=== PATIENT | male | born 1930 | race Caucasian/White ===

== ENCOUNTER 2017-08-03 06:39 | Inpatient (IN) | payer MEDICARE, OTHER ==
[2017-08-03] VITALS (11 sets, daily range): BP systolic 126–148; BP diastolic 60–85; PULSE 56–100; RESP 18–19; TEMP 97.6–98; O2SAT 96–97
[~2017-08-03] VITALS: Ht 182.9 cm; Wt 90.5 kg
[2017-08-03] MEDS ORDERED: IOHEXOL 350 MG/ML 100 ML BTL (for Cath Lab) OTHER ONE (06:40)
[2017-08-03] MEDS ORDERED: diphenhydrAMINE HCL 50 MG/ML VIAL IV PUSH SCH (07:00)
[2017-08-03] MEDS ORDERED: NS 1000P @30 MLS/HR (KVO) IV SCH (07:00)
[2017-08-03] MEDS ORDERED: MAGN400T2 PO (07:18)
[2017-08-03] MEDS ORDERED: TERA2CAP3 PO (07:18)
[2017-08-03] MEDS ORDERED: NORV2.5T PO (07:18)
[2017-08-03] MEDS ORDERED: ATOR20TA15 PO (07:18)
[2017-08-03] MEDS ORDERED: VITA100021 SL (07:18)
[2017-08-03] MEDS ORDERED: VITA500T83 PO (07:18)
[2017-08-03] MEDS ORDERED: NITR0.4S SL (07:18)
[2017-08-03] MEDS ORDERED: FINA5TAB2 PO (07:18)
[2017-08-03] MEDS ORDERED: ASPI-183 PO (07:18)
[2017-08-03] MEDS ORDERED: OMEP10CA PO (07:18)
[2017-08-03] MEDS ORDERED: MIDAZOLAM HCL 2 MG/2 ML VIAL ONE (08:27)
[2017-08-03] MEDS ORDERED: HEPARIN-NS/PF INJ 1,000 ML ONE (08:27)
[2017-08-03] MEDS ORDERED: NITROGLYCERIN 400 MCG/SPRAY 4.9 GM BOTTLE SL ONE (08:45)
--- NOTE | 2017-08-03 09:08 | CATHPROC ---
[facility] HIS Report Study Information Study Number Admission Scheduled Start Study Start [id number] Aug 03 2017 6:39AM 08/03/2017 Aug 03 2017 8:01AM [place] [facility] Cardiac Catheterization Admit Source Facility Department Other [facility] Physician and Clinical Staff Initial Lv Glez Drafter Electrical Nisa Abel BSN Recorder Alexandra Chery ,RT(R) Recorder Elisa Garcia,RT(R) ScrMiroslava Ruggiero,RT(R) (BS) Procedures Performed Procedure Location (Site) Vessel Name Angiogram LV LV Ventricle Coronary Angiograms LCA Left Coronary Coronary Angiograms RCA Right Coronary L Heart Cath Equipment Time Principal Java Developer Description Size Mfg Part Number Used/Scraped TRANSDUCER, TRUWAVE [id number] 08:32 [email or web address] MAGALLON * Used W/STOCKCOCK *[id number] *[id number] *[id number] *[id number] 08:32 [facility] INDUSTRIES PACK, CCL CUSTOM * Used *[id number] 08:32 [facility] PACER PEN, SKIN DUAL W/ RULER * Used *[id number] 08:32 [employer] MEDICAL SHEATH, FR6.5 PRELUDE 11CM FR 6.5 038ACT Used *[id number] 08:32 [employer] MEDICAL WIRE, 3MMJ .035 180CM 180CM Used *[id number] 08:32 NAMIC MANIFOLD, 4 PORT * Used *[id number] 08:48 NAMIC TUBING, HIGH PRESSURE 20" 20" Used *[id number] 08:32 [employer] OMNIPAQUE, 350 MG, 100ML 100ML [id number] Used 08:48 [employer] OMNIPAQUE, 350 MG, 50ML 50ML [id number] Used [id number] 08:32 [employer] MED[employer] BLANKET,WARM AIR CCL * Used *[id number] History: Current Medications Medication Dosage/Unit Route Frequency Last Date/Time Taken ASA Statins (any) History: Allergies Allergy Reaction Penicillins iodine codeine History: Risk Factors Family History of Hypertension Dyslipidemia Previous [place] Previous Heart Failure Premature CAD Yes No No No No Prior Valve Prior PCI Prior CABG Surgery No No No Cerebrovascular Peripheral Artery Chronic Lung On Dialysis Diabetes Disease Disease Disease No No No No No History: Stress Tests Stress or Imaging Studies Performed Yes Standard Exercise Stress Test No Stress Echo No Stress Test SPECT Stress Test SPECT Result Stress Test SPECT Ischemia Risk/Extent Yes Positive High Stress Test CMR No Cardiac CTA Coronary Calcium Score No No History: Other Current Smoker No Labs Hgb (g/dl) Hct (%) WBC (l/cumm) Platelets (thousands) 11.60-17.00 35.00-51.00 4.00-11.00 150.00-450.00 14.1 42.4 6.8 227 Glucose (mg/dl) BUN (mg/dl) Creatinine (mg/dl) BUN:Creatinine (1:x) 74.00-106.00 7.00-18.00 0.50-1.30 10.00-20.00 94 16 1.0 16 Na (meq/l) K (meq/l) 136.00-145.00 3.50-5.10 143 4.7 INR (PTT:PT) 0.90-1.10 1 CPK-MB (ng/ML) 0.50-3.60 Not Drawn Medication Medication Total Dose (Bolus/Oral) Medication Total Dosage/Unit 1% XYLOCAINE 20 mL NITROGLYCERIN S/L 1 mg VERSED 2 mg Medications (Bolus/Oral) Medication Time Given Dosage/Unit Administered By Reason VERSED 08/03/2017 8:36:15 AM 2 mg Nisa Abel 2 mg VERSED given in lab by Nisa Abel BSN in Left Antecubital via Peripheral IV. Ordered b Lv Macdonald. 1% XYLOCAINE 08/03/2017 8:37:18 AM 20 mL Lv Carmen 20 mL 1% XYLOCAINE given in lab by Lv Carmen in Right Groin via Subcutaneous. Ordered by Lv Boyd ms. NITROGLYCERIN S/L 08/03/2017 8:45:00 AM 1 mg Nisa Abel 1 mg NITROGLYCERIN S/L given in lab by Nisa Abel BSN via Sublingual. Ordered by Lv Carmen. Medication (Drip) Medication Time Given Dosage/Unit Concentration/Unit Diluent (ml) Solution IV Solutions 08/03/2017 8:24:10 AM 50 mL (IV) NaCl .9 Patient arrived on IV Solutions in Left Antecubital via Peripheral IV. Pump/Drip Flow using NaCl .9. Initial Case Assessment Cardiovascular HR Rhythm NIBP Chest Pain 84 sr 132/83 0 Edema Present Skin color Skin None Normal Warm Dry Circulatory - Right Pulses Dorsalis Pedis Femoral 1 3 Scale (0,1,2,3,4,d) Circulatory - Left Pulses Dorsalis Pedis Femoral 1 3 Scale (0,1,2,3,4,d) Neurological State Oriented to time-place- Alert Moves all extremities person Respiration - General Respiration Rate SpO2 (%) (B/min) 13 96 Final Case Assessment Cardiovascular HR Rhythm NIBP Chest Pain 84 sr 132/83 0 Edema Present Skin color Skin None Normal Warm Dry Circulatory - Right Pulses Dorsalis Pedis Femoral 1 3 Scale (0,1,2,3,4,d) Circulatory - Left Pulses Dorsalis Pedis Femoral 1 3 Scale (0,1,2,3,4,d) Neurological State Oriented to time-place- Alert Moves all extremities person Respiration - General Respiration Rate SpO2 (%) (B/min) 13 96 Chronological Log Time Study Chronological Log 8:18:25 Patient pre medicated with prednizone. 40 mg last night and this morning in case of possibl e contrast allergy 8:19:06 Patient arrived via Bed. 8:19:07 Patient Name, D.O.B, / Armband Verified By R.N. 8:23:00 MD arrived. 8:23:47 Consent signed by the physician and the patient and verified by the [facility] staff. 8:23:49 Verbal Stimulation=2 Physical Stimulation=2 Airway=2 Respiration=2 TOTAL=8. (0=absent, 1=li mited, 2=present) 8:23:59 Patient has been NPO for More than 6Hrs. 8:24:00 Skin Breakdown- none per patient 8:24:04 [place] Prominences Protected 8:24:09 A # 20 IV was noted in the Antecubital (left). Grade = 0 8:24:10 Patient arrived on IV Solutions in Left Antecubital via Peripheral IV. Pump/Drip Flow using NaCl .9. 8:24:11 History and physical on the chart or being dictated. Assessment: Initial Case, HR=84 BPM, Rhythm=sr, FVQB=252/83 mmhg, Chest Pain=0, Edema=None, Col or=Normal, Skin = Warm, Dry Right Pulses: Rik Ped=1, Femoral=3 8:24:12 Left Pulses: Rik Ped=1, Femoral=3 Neurological: State=Alert, Ox3, MURPHY Respiration: Resp=13 B/min, SpO2=96 % Vitals capture started with the following parameters, Patient=Adult, Interval=5 min, Initial Pr smbrkp=548 mmHg, 8:26:02 Deflation Rate=5 mmHg, Cuff placed on Left Arm 8:26:36 HR=61 bpm, SIAH=288/83 mmhg, SpO2=97.0 %, Resp=18 B/min, Pain=0, Bernabe=2 8:30:14 Reference ECG taken 8:30:42 Bilateral groins prepped with 2% chlorhexidine, and draped after a 3 minute waiting time. 8:31:39 HR=65 bpm, UVZQ=463/83 mmhg, SpO2=96.0 %, Resp=16 B/min, Pain=0, Bernabe=2 8:35:10 Pressure channel 1 zeroed. Time Out. Correct patient, correct procedure, correct physician, power injector not loaded with contrast with surgical 8:35:30 team present. Time Out Concurred by MD and individual staff in procedure. 8:35:49 Case Start 2 mg VERSED given in lab by Nisa Abel BSN in Left Antecubital via Peripheral IV. Orde red by Kermit, 8:36:15 Lv. 8:36:42 HR=70 bpm, RZNN=158/80 mmhg, SpO2=97.0 %, Resp=16 B/min, Pain=0, Bernabe=2 8:37:18 20 mL 1% XYLOCAINE given in lab by Lv Carmen in Right Groin via Subcutaneous. Ordered by Lv Carmen. 8:39:56 Access site was Right Femoral Artery. 8:40:23 A SHEATH, FR6.5 PRELUDE 11CM FR 6.5 was advanced into the Fem Art (right) using the Percutan eous technique. A JL 4.0 INFINITI CATHETER FR 6 was advanced over a wire. OMNIPAQUE, 350 MG, 100ML 100ML was use d for 8:40:39 injections. 8:41:43 HR=73 bpm, EKFE=543/74 mmhg, SpO2=95.0 %, Resp=20 B/min, Pain=0, Bernabe=2 Recorded Pressure: Ao, HR=75, Condition=Condition 1 8:42:37 (Aorta) Ao 113/63/85 8:45:00 1 mg NITROGLYCERIN S/L given in lab by Nisa Abel BSN via Sublingual. Ordered by Lv Zuniga. 8:45:19 The LCA was injected and visualized at various angles. OMNIPAQUE, 350 MG, 100ML 100ML used. 8:46:36 HR=81 bpm, TDYW=095/88 mmhg, SpO2=97.0 %, Resp=13 B/min, Pain=0, Bernabe=2 8:47:26 Catheter was removed A JR 4.0 INFINITI CATHETER FR 6 was advanced over a wire. OMNIPAQUE, 350 MG, 100ML 100ML was use d for 8:49:19 injections. 8:50:17 The RCA was injected and visualized at various angles. OMNIPAQUE, 350 MG, 100ML 100ML used. 8:51:17 Catheter was removed 8:51:42 HR=82 bpm, EWYL=665/85 mmhg, SpO2=95.0 %, Resp=12 B/min, Pain=0, Bernabe=2 A PIGTAIL STR INFINITI CATHETER FR 6 was advanced over a wire. OMNIPAQUE, 350 MG, 100ML 100ML wa s used for 8:52:31 injections. Recorded Pressure: LV, HR=84, Condition=Condition 1 8:52:51 (Left Ventricle) LV 141/2/6 8:53:28 The LV was injected at 12 cc/sec for a total of 30. OMNIPAQUE, 350 MG, 50ML 50ML used. Recorded Pressure: LV, Ao, HR=83, Condition=Condition 1 8:53:54 (Left Ventricle) LV 136/3/12, (Aorta) Ao 132/72/100 8:54:51 Catheter was removed 8:55:55 Case End 8:56:32 Sheath(s) left in place, will be removed in Holding Area 8:56:38 Sterile dressing applied to site 8:56:40 No case complications noted. 8:56:41 Cine recording checked. 8:56:43 HR=83 bpm, ZUUT=177/82 mmhg, SpO2=95.0 %, Resp=19 B/min, Pain=0, Bernabe=2 8:56:47 Bedside Report will be given. 8:56:52 Contrast Scanned 8:57:02 A Left Heart Cath was performed. Assessment: Final Case, HR=84 BPM, Rhythm=sr, OLLQ=468/83 mmhg, Chest Pain=0, Edema=None, [place] r=Normal, Skin = Warm, Dry Right Pulses: Rik Ped=1, Femoral=3 8:57:21 Left Pulses: Rik Ped=1, Femoral=3 Neurological: State=Alert, Ox3, MURPHY Respiration: Resp=13 B/min, SpO2=96 % 9:01:44 HR=79 bpm, FVTV=435/75 mmhg, SpO2=96.0 %, Resp=30 B/min 9:02:43 Vitals capture stopped. 9:05:27 Patient moved to stretcher End Study - Contrast Media Used In Study Contrast Total Opened (mL) Total Used (mL) Total Wasted (mL) Omnipaque 85 85 0 End Study - Maximum Contrast Load Max Contrast Load (mL) 440.9 End Study - Radiation Exposure Fluoro Time (minutes) 1.8 End Study - Patient Disposition Complications Transferred To Interventional Outcome No [facility] Holding No attempt made
[2017-08-03] MEDS ORDERED: BACITRACIN OINT 0.9 GM PKT TOP ONE (09:15)
[2017-08-03] MEDS ORDERED: SODIUM CHLOR 0.9% 250 ML INJ 250 ML IV PRN (09:15)
[2017-08-03] MEDS ORDERED: MISC INFORMATION XX ONE (09:15)
[2017-08-03] MEDS ORDERED: ATROPINE SULFATE 1 MG/ML VIAL IV PUSH PRN (09:15)
[2017-08-03] MEDS ORDERED: ONDANSETRON HCL 4 MG/2 ML VIAL IV PUSH PRN (09:15)
[2017-08-03] MEDS ORDERED: LORazepam 2 MG/ML VIAL IV PUSH PRN (09:15)
[2017-08-03] MEDS ORDERED: LIDOCAINE HCL 1% 50 ML VIAL INFIL PRN (09:15)
--- NOTE | 2017-08-03 09:49 | MA ---
cc: LV CARMEN MD DATE 08/03/2017 PROCEDURE PERFORMED The patient was prepped and draped in the usual fashion. A 6-sheath was inserted percutaneously in the right femoral artery. HEMODYNAMIC RESULTS Aortic pressure was 120/80. Left ventricular end-diastolic pressure was 5. There was no gradient across the aortic valve. CORONARY ANGIOGRAPHY The left main coronary demonstrated a 70% stenosis in its distal portion. The proximal LAD demonstrated a high-grade stenosis of 90%. Somewhat of a reconstitution was present and a second 75-80% stenosis was present in the midportion encompassing the takeoff of the first diagonal. The distal portion of the LAD appeared to have some mild diffuse disease but no high-grade stenosis was present. At the origin of the first diagonal a 75% stenosis was present with the distal portion of the diagonal bifurcating into a secondary branch with no significant stenoses. The left circumflex artery gave off a large obtuse marginal branch. No significant lesions were noted in the circumflex system. The right coronary artery demonstrated a 75-80% stenosis in its midportion. Left ventriculography demonstrated a normal left ventricular cavity size. Left ventricular ejection fraction was well-maintained with an EF estimated at 65%. No mitral regurgitation was present. CONCLUSIONS This patient demonstrates the coronary disease as described above. He would appear to be a candidate for bypass grafting to the distal LAD, first diagonal, obtuse marginal and right coronary artery. Lv Carmen MD DLW/SSB /9:24 AM /9:42 AM
[2017-08-03] MEDS ORDERED: SODIUM CHLORIDE 0.9% FLUSH 10 ML FLUSH IV FLUSH PRN ×2 (14:30)
[2017-08-03] MEDS ORDERED: NITROGLYCERIN 0.4 MG SL 25 TABS/BTL SL PRN (14:30)
[2017-08-03] MEDS ORDERED: SENNOSIDES 8.6 MG TAB PO PRN (14:30)
[2017-08-03] MEDS ORDERED: LACTULOSE SYRUP 20 GM/30 ML CUP PO PRN (14:30)
[2017-08-03] MEDS ORDERED: DEXTROSE 50% IN WATER 50 ML VIAL(D50) IV PUSH PRN (14:30)
[2017-08-03] MEDS ORDERED: ZOLPIDEM TARTRATE 5 MG TAB PO PRN (14:30)
[2017-08-03] MEDS ORDERED: VANCOMYCIN INJ 1,000 MG in SODIUM CHLORIDE 0.9% IRR BTL 1,000 ML IRRIGATION SCH (14:30)
[2017-08-03] MEDS ORDERED: VANCOMYCIN INJ 1,500 MG in SODIUM CHLORID 0.9% 500 ML INJ 500 ML IV SCH (14:30)
[2017-08-03] MEDS ORDERED: INSULIN REGULAR (IV INFUSION) 100 UNITS in SODIUM CHLORIDE 0.9% INJ 99 ML IV PRN (14:30)
[2017-08-03] MEDS ORDERED: ACETAMINOPHEN 325 MG TAB PO PRN (14:30)
[2017-08-03] MEDS ORDERED: NALOXONE HCL 0.4 MG/ML AMP IV PUSH PRN (14:30)
[2017-08-03] MEDS ORDERED: CHLORHEXIDINE GLUCONATE 4% SOLN 120 ML BTL TOPICAL SCH (14:30)
[2017-08-03] MEDS ORDERED: PAPAVERINE INJ 60 MG, NITROGLYCERIN INJ 100 MCG, DILTIAZEM INJ 100 MG in SODIUM CHLORID... IRRIGATION SCH (14:30)
[2017-08-03] MEDS ORDERED: METOPROLOL TARTRATE 25 MG TAB PO SCH (14:30)
[2017-08-03] MEDS ORDERED: MAGNESIUM HYDROXIDE SUSP 30 ML CUP PO PRN (14:30)
[2017-08-03] MEDS ORDERED: BISACODYL 10 MG SUPP RECTAL PRN (14:30)
[2017-08-03] MEDS ORDERED: PILL SPLITTER OTHER PRN (14:45)
--- NOTE | 2017-08-03 15:29 | PD.CAR.PN ---
CVT Progress Note Subjective/Hospital Course: RISK SCORES About the STS Risk Calculator Procedure: CAB Only Risk of Mortality: 2.028% Morbidity or Mortality: 14.983% Long Length of Stay: 6.325% Short Length of Stay: 34.83% Permanent Stroke: 1.209% Prolonged Ventilation: 9.463% DSW Infection: 0.435% Renal Failure: 3.655% Reoperation: 5.711% Objective: Vital Signs Date Time Temp Pulse Resp B/P (MAP) Pulse Ox O2 Delivery O2 Flow Rate FiO2 08/03/17 09:09 94 Room Air 08/03/17 07:20 97.6 100 18 143/83 (103) 97 Karrie Patel Aug 03, 2017 15:29
[2017-08-03] MEDS: FINASTERIDE 5 MG TAB PO SCH (16:34)
--- NOTE | 2017-08-03 18:36 | RADRPT ---
EXAM DATE/TIME: 08/03/2017 17:41 [facility] COMPARISON: No previous studies available for comparison. INDICATIONS : Evaluate for pneumonia, pneumothorax, or communicable disease. Pre op CABG. MEDICAL HISTORY : None. SURGICAL HISTORY : None. ENCOUNTER: Initial ACUITY: 1 day PAIN SCORE: 0/10 LOCATION: Bilateral chest FINDINGS: PA and lateral views of the chest demonstrate the lungs to be symmetrically aerated without evidence of mass, infiltrate or effusion. The cardiomediastinal contours are unremarkable. Osseous structure s are intact. CONCLUSION: 1. No active disease. Calcified granuloma left upper lobe. Ladarius Villalta MD on August 03, 2017 at 18:32 Board Certified Radiologist. This report was verified electronically.
--- NOTE | 2017-08-03 19:14 | RADRPT ---
EXAM DATE/TIME: 08/03/2017 18:04 [facility] COMPARISON: No previous studies available for comparison. INDICATIONS : Preop cardiac surgery. MEDICAL HISTORY : Chest pain. Hypertension. Bronchitis. SURGICAL HISTORY : None. ENCOUNTER: Initial ACUITY: 1 day PAIN SCORE: 0/10 LOCATION: Bilateral legs. TECHNIQUE: Venous ultrasound of the left and right leg was performed from the inguinal ligament to the proximal calf. Real-time, color Doppler and spectral tracing, compression and augmentation techniques were us ed. FINDINGS: RIGHT LEG: There is normal compressibility of the deep venous system from the inguinal region to the proximal ca lf. No echogenic clot is seen in the lumen of the common femoral, femoral, popliteal, and posterior tibial veins. There is a normal response of the venous system to proximal and distal augmentation an d respiration. LEFT LEG: There is normal compressibility of the deep venous system from the inguinal region to the proximal ca lf. No echogenic clot is seen in the lumen of the common femoral, femoral, popliteal, and posterior tibial veins. There is a normal response of the venous system to proximal and distal augmentation an d respiration. CONCLUSION: Normal examination. Ladarius Villalta MD on August 03, 2017 at 19:10 Board Certified Radiologist. This report was verified electronically.
--- NOTE | 2017-08-03 19:15 | RADRPT ---
EXAM DATE/TIME: 08/03/2017 18:30 [facility] COMPARISON: No previous studies available for comparison. INDICATIONS : Preop cardiac surgery. MEDICAL HISTORY : Chest pain. Hypertension. Bronchitis. SURGICAL HISTORY : None. ENCOUNTER: Initial ACUITY: 1 day PAIN SCORE: 0/10 LOCATION: Bilateral neck PEAK SYSTOLIC VELOCITIES (cm/sec): ICA/CCA RATIO: Right: 1.1 Left: 0.8 ICA: Right: 61 Left: 56 CCA: Right: 55 Left: 68 ECA: Right: 125 Left: 65 VERTEBRAL: Right: 45 antegrade Left: 45 antegrade Elevated flow velocities and ICA/CCA ratios have been found to correlate with increased degrees of vessel stenosis, calculated as percentage of diameter relative to a normal segment of distal ICA/CCA FINDINGS: RIGHT CAROTID: No significant stenosis is visualized. The waveforms are within normal limits. LEFT CAROTID: No significant stenosis is visualized. The waveforms are within normal limits. VERTEBRAL ARTERIES: Antegrade flow is seen in both vertebral arteries. MISCELLANEOUS: None. CONCLUSION: 1. Mild visible plaque without carotid stenosis. Ladarius Villalta MD on August 03, 2017 at 19:12 Board Certified Radiologist. This report was verified electronically.
--- NOTE | 2017-08-03 19:50 | RADRPT ---
EXAM DATE/TIME: 08/03/2017 18:12 [facility] COMPARISON: No previous studies available for comparison. INDICATIONS : Preop cardiac surgery. MEDICAL HISTORY : Chest pain. Hypertension. Bronchitis. SURGICAL HISTORY : None. ENCOUNTER: Initial ACUITY: 1 day PAIN SCORE: 0/10 LOCATION: Bilateral legs. GREATER SAPHENOUS VEIN THIGH: PROXIMAL: Right 2 mm Left 2 mm MID: Right 2 mm Left 3 mm DISTAL: Right 1 mm Left 3 mm CALF: PROXIMAL: Right 2 mm Left 2 mm MID: Right 1 mm Left 2 mm DISTAL: Right 2 mm Left 3 mm FINDINGS: The venous system of the lower extremities are patent by color Doppler imaging. Measurements of the leg veins (in mm) are listed above. CONCLUSION: 1. Venous measurements as above. Ladarius Villalta MD on August 03, 2017 at 19:48 Board Certified Radiologist. This report was verified electronically.
--- NOTE | 2017-08-03 20:48 | RADRPT ---
EXAM DATE/TIME: 08/03/2017 17:36 [facility] COMPARISON: No previous studies available for comparison. INDICATIONS : Pre operative for CABG. RADIATION DOSE: 8.29 CTDIvol (mGy) MEDICAL HISTORY : Hypertension. SURGICAL HISTORY : Cardiac Cath. ENCOUNTER: Initial ACUITY: 1 day PAIN SCALE: 1/10 LOCATION: Bilateral chest TECHNIQUE: Volumetric scanning of the chest was performed. Using automated exposure control and adjustment of t he mA and/or kV according to patient size, radiation dose was kept as low as reasonably achievable to obtain optimal diagnostic quality images. DICOM format image data is available electronically for r eview and comparison. Follow-up recommendations for detected pulmonary nodules are based at a minimum on nodule size and pa tient risk factors according to Fleischner Society Guidelines. FINDINGS: There is an 8mm nodule in the left upper lobe adjacent to the aortic arch. Followup CT recommended in 3-6 months. There is linear scarring or atelectasis at both lung bases. No pleural or pericardial ef fusion. No adenopathy. Moderate coronary calcifications. No acute findings in the upper abdomen. Splenic granulomata. No acute bony abnormalities. CONCLUSION: 1. Nodule left upper lobe measuring up to 8 mm in diameter. Short term followup CT recommended. Minim al basilar lung scarring. No effusion or adenopathy. Ladarius Villalta MD on August 03, 2017 at 20:42 Board Certified Radiologist. This report was verified electronically.
[2017-08-03] MEDS: SODIUM CHLORIDE 0.9% FLUSH 10 ML FLUSH IV FLUSH SCH (20:54)
[2017-08-03] MEDS: TERAZOSIN HCL 1 MG CAP PO SCH (20:55)
[2017-08-03] MEDS: ATORVASTATIN 20 MG TAB PO SCH (20:55)
[2017-08-03] MEDS: DOCUSATE SODIUM 50 MG/SENNA 8.6 MG TAB PO SCH (20:55)
[2017-08-03] MEDS ORDERED: SODIUM CHLORIDE 0.9% FLUSH 10 ML FLUSH IV FLUSH SCH (21:00)
[2017-08-03 22:23] LABS: BILIRUBIN, URINE NEG (NEG); BLOOD, URINE NEG (NEG); GLUCOSE,URINE 70 mg/dL (NEG); KETONE, URINE NEG (NEG); NITRITE,URINE NEG (NEG); URINE COLOR YELLOW (YELLW/STRAW); URINE LEUKOCYTE ESTERASE NEG (NEG)
[2017-08-04] VITALS (21 sets, daily range): BP systolic 128–137; BP diastolic 62–69; PULSE 48–65; RESP 19–20; TEMP 98–98.5; O2SAT 96–98
[2017-08-04 04:33] LABS: BASOPHIL % 0.2 % (0.0-2.0); EOSINOPHIL # 0.1 TH/MM3 (0-0.4); EOSINOPHIL % 0.4 % (0.0-4.0); HEMATOCRIT 37.7 % (39.0-51.0); HEMOGLOBIN 13.1 GM/DL (13.0-17.0); LYMPH % 9.3 % (9.0-44.0); LYMPHOCYTE # 1.2 TH/MM3 (1.0-4.8); MEAN CORPUSCULAR HGB CONC 34.8 % (32.0-36.0); MEAN PLATELET VOLUME 7.4 FL (7.0-11.0); MONO % 8.2 % (0.0-8.0); MONOCYTE # 1.1 TH/MM3 (0-0.9); NEUT % 81.9 % (16.0-70.0); PLATELET COUNT 191 TH/MM3 (150-450); RED BLOOD COUNT 4.39 MIL/MM3 (4.50-5.90); RED CELL DISTRIBUTION WIDTH 14.3 % (11.6-17.2); WHITE BLOOD COUNT 13.4 TH/MM3 (4.0-11.0)
[2017-08-04 04:43] LABS: INTERNATIONAL NORMALIZED RATIO 1.1 RATIO; PROTHROMBIN TIME - PATIENT 10.8 SEC (9.8-11.6)
[2017-08-04 04:56] LABS: AST (GOT) 12 U/L (15-37); BLOOD UREA NITROGEN 19 MG/DL (7-18); CALCIUM 8.1 MG/DL (8.5-10.1); CHLORIDE 108 MEQ/L (98-107); CREATININE 0.91 MG/DL (0.60-1.30); GLOMERULAR FILTRATION RATE 79 ML/MIN (>89); GLUCOSE,RANDOM 108 MG/DL (74-106); SODIUM (NA) 141 MEQ/L (136-145)
[2017-08-04 04:58] LABS: ALKALINE PHOSPHATASE 71 U/L (45-117); ALT (GPT) 19 U/L (12-78); TOTAL BILIRUBIN ADULT 0.4 MG/DL (0.2-1.0); TOTAL PROTEIN 5.6 GM/DL (6.4-8.2)
--- NOTE | 2017-08-04 08:13 | MB ---
cc: KASHMIR SHANKAR DR. DATE OF CONSULTATION: 08/03/2017 DATE OF : 34 PHYS[address] Lv Carmen MD. César Laguerre MD. HISTORY OF PRESENT ILLNESS: The patient apparently presented to Dr. Carmen for second opinion, was recently worked up by Dr. Street and wanted a second opinion for cardiac status. He had a stress test because of chest discomfort from a recent lung infection. Cath was recommended. He had been complaining of fatigue and some night sweats, lightheaded when he wakes up in the morning. No shortness of breath or palpitations. He does use a step machine at home. He gets some chest pressure from walking up a flight of stairs at home. Denies any prior history of heart disease. He is rather active, still drives and walks on a daily basis. His cardiac catheterization showed left main disease of 75%, proximal LAD 90%, mid to distal LAD 90%, diagonal 75%, RCA 75, EF is 65%. His stress test showed some ischemia in the anterior wall involving the LAD distribution. PAST MEDICAL HISTORY: Significant for: 1. Hypertension. 2. Benign prostatic hypertrophy. 3. Gastroesophageal reflux disease. 4. Angina. ALLERGIES PENICILLIN. CODEINE IODINE HOME MEDICATIONS: 1. Atorvastatin. 2. Nitro. 3. Terazosin. 4. Amlodipine. 5. Aspirin. 6. Magnesium. 7. Omeprazole. 8. Vitamin B12. 9. Vitamin C. 10. Finasteride. FAMILY HISTORY: Noncontributory. SOCIAL HISTORY: Nonsmoker. REVIEW OF SYSTEMS: GENERAL: No night sweats, fever, not and cold intolerance. Skin: No psoriasis, itching or hives. HEENT: No blurred vision, hearing loss. Respiratory: As above in HPI. Cardiac: As above in the HPI. Gastrointestinal: No diarrhea, vomiting. Genitourinary: No burning, frequency, urgency. INTERNET E COMMERCE SPECIALIST: No history of TIA, CVA, seizure disorder. Endocrinology: No history of diabetes and/or hypothyroidism. PHYSICAL EXAMINATION: On exam, well-developed male, stated age. VITAL SIGNS: Blood pressure 140/80, heart rate 100, temperature max 97.6. Patient is awake, alert, no acute distress. Head: Head is normocephalic, atraumatic. Pupils equal and reactive. Oral mucosa pink, moist. Neck: Supple. No JVD. Heart: Heart sounds S1-S2, regular rate and rhythm. No audible rubs, murmurs, gallops. Lungs: Clear to auscultation. No wheezes, rales or rhonchi. Abdomen: Soft, nontender. No masses or organomegaly. Extremities: No cyanosis, clubbing or edema. LABORATORY WORK: Lab work at Dr. Carmen office showed hemoglobin 14, hematocrit 42, white cell count of 6, platelet count 227, sodium 143, potassium 4.7, BUN 16, creatinine 1.07, INR 1.0. EKG: Sinus rhythm with first-degree A-V block. IMPRESSION: This is an 87 year-old male fairly active with recent chest pain, positive stress test, underwent cardiac catheterization with multivessel disease, ejection fraction 65%. The cardiac films have been evaluated by Dr. Naina Shankar. The procedures, alternatives and risks have been discussed with the patient. In lieu of his significant disease, will admit and do complete workup and surgery is planned for Tuesday morning, August 05, 2017. Further planning per Dr. Naina Shankar. Dictated by: DAVID Cruz MD CHET Rodriguez/TINY /3:20 PM /8:07 AM
[2017-08-04] MEDS: PANTOPRAZOLE SOD 20 MG DELAYED RELEASE TAB PO SCH (09:40)
[2017-08-04] MEDS: MAGNESIUM OXIDE 400 MG TAB PO SCH (09:41)
[2017-08-04] MEDS: DOCUSATE SODIUM 50 MG/SENNA 8.6 MG TAB PO SCH ×2 (09:41→22:07)
[2017-08-04] MEDS: ASPIRIN 325 MG TAB PO SCH (09:41)
[2017-08-04] MEDS: FINASTERIDE 5 MG TAB PO SCH (09:42)
[2017-08-04] MEDS: amLODIPine BESYLATE 5 MG TAB PO SCH (09:42)
[2017-08-04] MEDS: SODIUM CHLORIDE 0.9% FLUSH 10 ML FLUSH IV FLUSH SCH ×2 (09:42→22:07)
[2017-08-04 16:37] LABS: HEMOGLOBIN A1C 5.8 % (4.3-6.0)
--- NOTE | 2017-08-04 16:46 | PD.CAR.PN ---
CVT Progress Note Subjective/Hospital Course: The patient apparently presented to Dr. Carmen for second opinion, was recently worked up by Dr. Street and wanted a second opinion for cardiac status. He had a stress test because of chest discomfort from a recent lung infection. Cath was recommended. He had been complaining of fatigue and some night sweats, lightheaded when he wakes up in the morning. No shortness of breath or palpitations. He does use a step machine at home. He gets some chest pressure from walking up a flight of stairs at home. Denies any prior history of heart disease. He is rather active, still drives and walks on a daily basis. His cardiac catheterization showed left main disease of 75%, proximal LAD 90%mid to distal LAD 90%, diagonal 75%, RCA 75, EF is 65%. His stress test showed some ischemia in the anterior wall involving the LAD distribution. PAST MEDICAL HISTORY: Hypertension, Benign prostatic hypertrophy, Gastroesophageal reflux disease 08/04 pt doing well , no chest pain for surgery in am carotid US ok ct chest : . Nodule left upper lobe measuring up to 8 mm in diameter. Short term followup CT recommended. Minimal basilar lung scarring. No effusion or adenopathy. Objective: GENERAL: SKIN: Warm and dry. HEAD: Normocephalic. EYES: No scleral icterus. No injection or drainage. NECK: Supple, trachea midline. No JVD or lymphadenopathy. CARDIOVASCULAR: Regular rate and rhythm without murmurs, gallops, or rubs. RESPIRATORY: Breath sounds equal bilaterally. No accessory muscle use. GASTROINTESTINAL: Abdomen soft, non-tender, nondistended. MUSCULOSKELETAL: No cyanosis, or edema. BACK: Nontender without obvious deformity. No CVA tenderness. Vital Signs Date Time Temp Pulse Resp B/P (MAP) Pulse Ox O2 Delivery O2 Flow Rate FiO2 08/04/17 15:00 98.0 56 20 128/62 (84) 96 08/04/17 15:00 56 08/04/17 14:16 65 08/04/17 13:00 55 08/04/17 12:04 53 08/04/17 11:00 98.0 59 20 130/68 (88) 96 08/04/17 11:00 59 08/04/17 10:00 58 08/04/17 06:00 51 08/04/17 05:00 53 1/25/18 04:00 48 08/04/17 03:00 49 08/04/17 03:00 98.3 53 19 137/69 (91) 96 08/04/17 02:00 49 08/04/17 01:00 55 08/04/17 00:00 53 08/03/17 23:00 65 08/03/17 23:00 97.6 60 19 130/63 (85) 96 08/03/17 22:00 74 08/03/17 21:00 58 08/03/17 20:00 56 08/03/17 19:00 62 08/03/17 19:00 98.0 60 18 126/60 (82) 97 08/03/17 18:00 78 08/03/17 17:00 68 Result Diagram: 08/04/17 0417 08/04/17416 Telemetry: second degree HB type 1 (1) Coronary artery disease Plan: for surgery in am (2) Hypertension (3) GERD (gastroesophageal reflux disease) (4) BPH (benign prostatic hyperplasia) Karrie Patel Aug 04, 2017 16:46
[2017-08-04] MEDS: TERAZOSIN HCL 1 MG CAP PO SCH (22:07)
[2017-08-04] MEDS: ATORVASTATIN 20 MG TAB PO SCH (22:07)
[2017-08-05] VITALS (23 sets, daily range): BP systolic 82–164; BP diastolic 46–81; PULSE 48–76; RESP 12–19; TEMP 97–98.6; O2SAT 96–99
[2017-08-05] MEDS ORDERED: LACTATED RINGER'S 1000 ML IV PRN (01:15)
[2017-08-05] MEDS ORDERED: methylPREDNISolone SOD SUCC 125 MG/2 ML VIAL ONE (06:11)
[2017-08-05] MEDS ORDERED: VANCOMYCIN HCL 1000 MG VIAL ONE (06:12)
[2017-08-05] MEDS ORDERED: HEPARIN SODIUM - SQ 10,000 UNITS/ML VIAL ONE (06:12)
[2017-08-05] MEDS ORDERED: DEXMEDETOMIDINE HCL 200 MCG/2 ML VIAL ONE (06:14)
[2017-08-05] MEDS ORDERED: CARDIOPLEGIC IRR 2,000 ML ONE (07:12)
[2017-08-05] MEDS ORDERED: POTASSIUM CHLORIDE 40 MEQ/20 ML VIAL ONE (07:13)
[2017-08-05] MEDS ORDERED: ALBUMIN 25% INJ 50 ML IV ONE (07:14)
[2017-08-05] MEDS ORDERED: MANNITOL INJ 100 ML ONE (07:14)
[2017-08-05] MEDS ORDERED: HEPARIN SODIUM - IV 10,000 UNITS/10 ML VIAL ONE (07:15)
[2017-08-05] MEDS ORDERED: SODIUM BICARBONATE 8.4% INJ 50 MEQ/50 ML SYR ONE (07:15)
--- NOTE | 2017-08-05 08:21 | HHI.FF ---
Face to Face Verification Diagnosis: (1) S/P CABG (coronary artery bypass graft) (2) Coronary artery disease (3) GERD (gastroesophageal reflux disease) (4) Hypertension (5) BPH (benign prostatic hyperplasia) Home Health Nursing Order: Signs/symptoms of disease process Medication education-adverse effect Wound care and dressing changes Nursing assessment with vital signs Instructions: Heart and Vascular Surgery patients *Special attention to sternal dressing Mandatory frequency Assess and evaluation, 4 days in a row The next week 3X week 2 times a week for 4 weeks 1 time a week for 5 weeks Schedule Heart and Vascular patients for full 60 day certification period Initial visit Review Open Heart Surgery Discharge Instructions (Sternal precautions, Activity, Elastic hose, Incision care, Driving, Incentive spirometry, Smoking, [place], Work and other) Need Betadine to paint incision Medication reconciliation Importance of follow up care/ check on appointments Make calendar record temperature daily When to call [facility] nurse, review instructions, phone list Incentive Spirometry, demonstration Visit 1- Begin discharge instruction for patient family and/ or caregiver using teach back method- Signs and symptoms of infection Disease characteristics Medicines and side effects Foods and nutrition/ appetite Infection control/ hand washing/ hygiene Visit 2- Continue teaching Discharge instructions- include additional information on smoking cessation , sternal dressing (sternal vac) Visit 3- Continue teaching- Cough and deep breathing, incision monitoring. Choose my plate Visit 4- Continue teaching- Discuss limitations Discuss how they are feeling Discuss progress toward goals Remaining visits- continue teaching and monitoring For any questions please call : Tuesday 8am-5pm Heart & Vascular Surgery Office ( Dr. Monaco & Dr. Shankar), After Hours / Nights (5pm -8am) Weekends and Holidays Please call [facility] Cardiac Intermediate Care Unit (CIC) Charge Nurse PREVENA Single Use Negative Wound Therapy System Caregiver Instruction Sheet 1. A Prevena dressing system was applied to the chest incision during surgery , to promote wound healing. It works via a suction device (negative pressure wound therapy) to remove low to moderate levels of exudate (drainage) and infectious materials. We recommend that the device stay in place for up to seven days, from day of surgery. 2. Day of Surgery___08/05/17 Day of Removal ____/09/25 3. The dressing should only be removed by a health critical care physician assistant. Please arrange removal of device to coincide with Home Health visit and or with Nursing staff at Rehab 4. If skin reddening or irritation of skin occurs, or excessive drainage, please notify the Cardiovascular Surgeons office at [phone]. 5. Light showering is permissible; however the pump should be disconnected and placed in safe location, where it will not get wet. The dressing should not be exposed to direct spray or submerged in water. No bath tub / shower only. Ensure the end of the tubing attached to the dressing is facing down so that water does not enter the top of the tube. 6. To remove Prevena dressing: press purple button to turn off device / remove the suction. Then disconnect the tubing from the pump. The fixation strips should be stretched away from the skin and the dressing lifted at one corner and peeled back until it has been fully removed. 7. After removal, it is ok to shower daily using liquid dial soap and clean wash cloth, rinse and pat dry, and leave incision open to air dry. For any concerns regarding Prevena dressing, and or wounds, please contact Jessica Amin, patient navigator at [phone] or notify the Cardiovascular Surgeons office at [phone]. Incentive spirometry Q1 hr x 10, while awake, also use acapella device hourly whole awake Sternal Breast Bone Precautions: NO pushing or pulling, ( pt must use sternal pillow to support chest with all activities and with coughing ( takes up to 3 months breast bone to heal ) Daily incision care: ok to shower daily, no tub bath. Wash all incisions with liquid dial soap, clean wash cloth to each site, rinse and pat dry. Observe for any signs of infection, such as drainage which is dark yellow, alex, green or foul smelling. Immediately report to the surgeon any drainage from the chest incision, or legs, and for any abnormal drainage from the chest tube sites. Notify surgeon if any temp >101.5 degrees F. When specialty dressing removed/ or if you do not have one, continue to shower daily as above, then rinse and pat incision dry and paint with betadine daily x 5 days. Allow steri strips to fall off if you have any. Avoid lotions, creams, salves, oils, etc. for the first month Please see attached forms for additional instructions regarding post Open Heart specialty wound vacuum dressings. JENISE or Prevena , Dressing to be removed by Nursing staff on __08/13/[address] Shankar patients , please obtain CBC, BMP, PA & Lat CXR in 2 weeks, results to Dr. Shankar ( prescription will be given) ( ) (Tele: [phone]) , F/U appointment: as per DC instructions: PCP in 2 weeks, CV surgeon 2 weeks, Chief Ultrasound Technologist 3-4 weeks For any questions regarding incisions/ dressing / meds / post op care or above Symptoms, Tuesday 8am-5pm Heart & Vascular Surgery Office ( Dr. Monaco & Dr. Shankar), After Hours / Nights (5pm -8am) Weekends and Holidays Please call [facility] Cardiac Intermediate Care Unit (CIC) Charge Nurse I have seen patient Richard Stoner Jr Brittany on 08/05/17. My clinical findings support the need for the requested home health care services because: Deconditioned w/ increased weakness I certify that my clinical findings support that this patient is homebound because: Post-op weakness Karrie Patel Aug 05, 2017 08:21
[2017-08-05] MEDS: FINASTERIDE 5 MG TAB PO SCH (09:00)
[2017-08-05] MEDS: PANTOPRAZOLE SOD 20 MG DELAYED RELEASE TAB PO SCH (09:00)
[2017-08-05] MEDS: amLODIPine BESYLATE 5 MG TAB PO SCH (09:00)
[2017-08-05] MEDS: ASPIRIN 325 MG TAB PO SCH (09:00)
[2017-08-05] MEDS: DOCUSATE SODIUM 50 MG/SENNA 8.6 MG TAB PO SCH ×2 (09:00→21:00)
[2017-08-05] MEDS: MAGNESIUM OXIDE 400 MG TAB PO SCH (11:00)
[2017-08-05] MEDS ORDERED: LACTATED RINGER'S 1000 ML INJ 500 ML IV PRN (11:42)
[2017-08-05] MEDS ORDERED: POTASSIUM CHLORIDE 20 MEQ CONTROLLED RELEASE TAB PO PRN ×2 (11:45)
[2017-08-05] MEDS ORDERED: METOPROLOL TARTRATE 5 MG/5 ML VIAL IV PUSH PRN (11:45)
[2017-08-05] MEDS ORDERED: Post-op Orders (for Pharmacy) OTHER ONE (11:45)
[2017-08-05] MEDS ORDERED: INSULIN REGULAR (IV INFUSION) 100 UNITS in SODIUM CHLORIDE 0.9% INJ 99 ML IV PRN (11:45)
[2017-08-05] MEDS ORDERED: ACETAMINOPHEN 650 MG SUPP RECTAL PRN (11:45)
[2017-08-05] MEDS ORDERED: SODIUM CHLORIDE 0.9% FLUSH 10 ML FLUSH IV FLUSH PRN (11:45)
[2017-08-05] MEDS ORDERED: hydrALAZINE HCL 20 MG/ML VIAL IV PUSH PRN (11:45)
[2017-08-05] MEDS ORDERED: CALCIUM CHLORIDE INJ 1 GM in SODIUM CHLORIDE 0.9% INJ 100 ML IV PRN ×2 (11:45→23:45)
[2017-08-05] MEDS ORDERED: CALCIUM CHLORIDE 10% 1 GRAM/10 ML VIAL IV PUSH PRN (11:45)
[2017-08-05] MEDS ORDERED: CLEVIDIPINE INJ 50 ML IV PRN (11:45)
[2017-08-05] MEDS ORDERED: POTASSIUM CHLOR 20 MEQ PREMIX 100 ML IV PRN ×3 (11:45)
[2017-08-05] MEDS ORDERED: DEXTROSE 50% IN WATER 50 ML VIAL(D50) IV PUSH PRN (11:45)
[2017-08-05] MEDS ORDERED: ALBUMIN 5% INJ 250 ML IV PRN (11:45)
[2017-08-05] MEDS ORDERED: RESP: ALBUTEROL 2.5 MG/IPRATROPIUM 0.5 MG NEB (PRN) NEB (11:45)
[2017-08-05] MEDS ORDERED: SODIUM BICARBONATE 8.4% SOLN 50 MEQ/50 ML VIAL IV PUSH PRN ×2 (11:45)
[2017-08-05] MEDS ORDERED: MAGNESIUM SULFATE INJ 2 GM in SODIUM CHLORIDE 0.9% INJ 100 ML IV PRN ×4 (11:45)
[2017-08-05] MEDS ORDERED: RESP: RACEPINEPHRINE 2.25% 0.5 ML NEB NEB PRN (11:45)
[2017-08-05] MEDS ORDERED: ACETAMINOPHEN 325 MG TAB PO PRN (11:45)
--- NOTE | 2017-08-05 11:48 | PD.OP ---
cc: Disha Shankar MD; Lv Carmen MD Operative Report Date of Surgery: Aug 05, 2017 Preoperative Diagnosis: (1) Angina pectoris (2) Coronary artery disease Postoperative Diagnosis: same Procedure: CABG x 4 GRAFF to LAD - good SVG to D1 - good SVG to OM1 - good SVG to RCA - good EVH Anesthesia: Dr. Simmons Surgeon: Disha Shankar Pigs Feet Finisher(s): MONIQUE Prado Operation and Findings: The risks, benefits, complications, treatment options, and expected outcomes were discussed with the patient. The possibilities of reaction to medication, pulmonary aspiration, perforation of viscus, bleeding, recurrent infection, the need for additional procedures, failure to diagnose a condition, and creating a complication requiring transfusion or operation were discussed with the patient. The patient concurred with the proposed plan, giving informed consent. The site of surgery properly noted/marked. The patient was taken to Operating Room, identified as Richard Soto and the procedure verified as CABG, EVH. A Time Out was held and the above information confirmed. Standard monitoring lines and Pineda catheter were placed. General anesthesia was induced. The patient was prepped and draped in a sterile fashion. A median sternotomy was performed and electrocautery was used to obtain hemostasis. The left internal mammary artery was procured as a pedicle from the 7th rib to the 1st rib in the usual manner. Simultaneously left greater saphenous vein was procured from the left leg using a minimally invasive endoscopic technique. The vein was prepared for anastomosis and the leg wound was irrigated and closed in 2 layers. The pericardium was opened and a pericardial sling was created using interrupted 0 silk sutures. The patient was heparinized for cardiopulmonary bypass and the distal mammary pedicle was instrumented for anastomosis. The heart was instrumented for cardiopulmonary bypass in the usual manner. Antegrade blood cardioplegia was employed. The patient was placed on cardiopulmonary bypass. An aortic cross-clamp was applied and the heart was arrested using cold blood cardioplegia. Antegrade cardioplegia was administered after he each anastomosis. After adequate arrest, the distal right coronary circulation was investigated and the distal RCA was opened with a Morongo blade and found to be a 1.5 millimeter good target. Saphenous vein was approximated to the RCA artery using a running 7 0 Prolene suture. The graft was measured for length and orientation and the proximal anastomosis was constructed to the ascending aorta using a running 5 0 Prolene suture after creating an aortotomy with a 5 millimeter punch. The 1st circumflex marginal artery was then opened with a Morongo blade and found to be a 1.5 millimeter good target. The OM1 artery was intramyocardial. Saphenous vein was approximated to the OM1 artery using a running 7 0 Prolene suture. The graft was measured for length and orientation and the proximal anastomosis was constructed to the ascending aorta using a running 5 0 Prolene suture after creating an aortotomy with a 5 millimeter punch. The 1st diagonal artery was then opened with a Morongo blade and found to be a 1.5 millimeter good target. Saphenous vein was approximated to the D1 artery using a running 7 0 Prolene suture. The graft was measured for length and orientation and suspended from the pericardium. The distal LAD was opened with a Morongo blade and found to be a 1.5 millimeter good target. The left internal mammary artery was approximated to the LAD using a running 7 0 Prolene suture. The pedicle was attached to the epicardium using interrupted 5 0 silk suture. The patient was systemically rewarmed and received a hotshot dose of warm blood cardioplegia. The aorta was vented and the proximal anastomosis to the D1 graft was accomplished using a running 5 0 Prolene suture after creating an aortotomy was a 5 millimeter punch. The cross-clamp was removed and all proximal and distal anastomoses were examined for hemostasis. Temporary atrial pacing on wires were positioned and brought out through the skin in the usual manner. The patient was paced at 80 beats per minute and weaned from cardiopulmonary bypass. Protamine was given. There was no adverse reaction. Decannulation was carried out without incident. Wound was checked for hemostasis which was obtained using electrocautery. A 36 Malay mediastinal and 32 Malay left pleural chest tubes were placed and secured to the skin with 0 silk suture. The sternum was closed with stainless steel wire. The fascia was closed with 1. PDS. The subcutaneous tissue was closed using a running 2-0 Vicryl suture. The skin was closed with 4-0 Monocryl. Sterile dressings were placed. At the end of the operation, all sponge, instruments, and needle counts were correct. The patient was transferred to the CVICU in stable condition. Findings: Good distal targets XC: 60 min CPB: 70 min Drains: mediastinal x 1 pleural x 1 Complications: none Disposition: to CVICU in stable condition Disha Shankar MD Aug 05, 2017 11:48
--- NOTE | 2017-08-05 13:03 | RADRPT ---
EXAM DATE/TIME: 08/05/2017 12:42 [facility] COMPARISON: No previous studies available for comparison. INDICATIONS : Post CABG. MEDICAL HISTORY : Hypertension. SURGICAL HISTORY : CABG. ENCOUNTER: Initial ACUITY: 1 day PAIN SCORE: Non-responsive. LOCATION: Bilateral chest FINDINGS: ET tube, nasogastric tube, mediastinal drain, central line and left chest tube in good position. The re is no pneumothorax or failure Mild prominence to the mediastinum CONCLUSION: Support apparatus the position Benton Lee MD FACR on August 05, 2017 at 13:00 Board Certified Radiologist. This report was verified electronically.
[2017-08-05] MEDS ORDERED: fentaNYL CITRATE 1000 MCG/20 ML VIAL ONE ×2 (13:19)
[2017-08-05] MEDS ORDERED: MIDAZOLAM HCL 2 MG/2 ML VIAL ONE (13:19)
[2017-08-05] MEDS: ACETAMINOPHEN 1000 MG/100 ML 100 ML IV SCH ×2 (13:42→18:16)
[2017-08-05] MEDS: RESP: ALBUTEROL 2.5 MG/IPRATROPIUM 0.5 MG NEB (SCH) NEB ×2 (17:10→20:53)
[2017-08-05] MEDS: VANCOMYCIN INJ 1,000 MG in SODIUM CHLOR 0.9% 250 ML INJ 250 ML IV SCH (21:00)
[2017-08-05] MEDS: ATORVASTATIN 20 MG TAB PO SCH (21:00)
[2017-08-05] MEDS: TERAZOSIN HCL 1 MG CAP PO SCH (21:00)
[2017-08-05] MEDS: SODIUM CHLORIDE 0.9% FLUSH 10 ML FLUSH IV FLUSH SCH (21:01)
[2017-08-05] MEDS: ONDANSETRON HCL 4 MG/2 ML VIAL IV PUSH PRN (22:34)
[2017-08-06] VITALS (15 sets, daily range): BP systolic 100–132; BP diastolic 51–65; PULSE 67–89; RESP 14–20; TEMP 97.6–99.1; O2SAT 94–99
[2017-08-06] MEDS: ACETAMINOPHEN 1000 MG/100 ML 100 ML IV SCH ×2 (01:08→05:41)
[2017-08-06] MEDS: RESP: ALBUTEROL 2.5 MG/IPRATROPIUM 0.5 MG NEB (SCH) NEB (03:16)
--- NOTE | 2017-08-06 04:33 | RADRPT ---
EXAM DATE/TIME: 08/06/2017 03:38 [facility] COMPARISON: CHEST SINGLE AP, August 05, 2017, 12:42. INDICATIONS : Shortness of breath, possible pneumothorax. MEDICAL HISTORY : Hypertension. SURGICAL HISTORY : CABG. ENCOUNTER: Subsequent ACUITY: 2 days PAIN SCORE: Non-responsive. LOCATION: Bilateral chest FINDINGS: The patient is status post sternotomy. The ET tube and NG tube have been removed. A left subclavian l ine is in good position. There is a left chest tube and a mediastinal drain in place. No pneumothorax is seen. The heart size is normal. The lungs are clear. CONCLUSION: No acute disease. Juancho Sutton MD on August 06, 2017 at 4:30 Board Certified Radiologist. This report was verified electronically.
[2017-08-06 04:51] LABS: HEMATOCRIT 35.2 % (39.0-51.0); MEAN CELL VOLUME 86.8 FL (80.0-100.0); MEAN CORPUSCULAR HEMOGLOBIN 29.5 PG (27.0-34.0); PLATELET COUNT 142 TH/MM3 (150-450); RED BLOOD COUNT 4.05 MIL/MM3 (4.50-5.90); RED CELL DISTRIBUTION WIDTH 14.3 % (11.6-17.2); WHITE BLOOD COUNT 17.8 TH/MM3 (4.0-11.0)
[2017-08-06 05:14] LABS: BICARBONATE 25.5 MEQ/L (21.0-32.0); CALCIUM 9.1 MG/DL (8.5-10.1); CREATININE 0.95 MG/DL (0.60-1.30); MAGNESIUM 2.4 MG/DL (1.5-2.5)
[2017-08-06] MEDS: PANTOPRAZOLE SOD 40 MG DELAYED RELEASE TAB PO SCH (05:40)
[2017-08-06] MEDS: VANCOMYCIN INJ 1,000 MG in SODIUM CHLOR 0.9% 250 ML INJ 250 ML IV SCH ×2 (08:21→20:00)
[2017-08-06] MEDS: FINASTERIDE 5 MG TAB PO SCH (09:00)
[2017-08-06] MEDS: SODIUM CHLORIDE 0.9% FLUSH 10 ML FLUSH IV FLUSH SCH ×2 (09:00→21:00)
[2017-08-06] MEDS: amLODIPine BESYLATE 5 MG TAB PO SCH ×2 (09:00→16:00)
[2017-08-06] MEDS: ASPIRIN 81 MG CHEW TAB PO SCH (09:00)
[2017-08-06] MEDS ORDERED: BISACODYL 10 MG SUPP RECTAL PRN (10:00)
[2017-08-06] MEDS: INSULIN ASPART SUPPLEMENTAL SCALE SQ SCH ×5 (10:00→22:00)
[2017-08-06] MEDS ORDERED: GLUCAGON 1 MG/ML VIAL OTHER PRN (10:00)
[2017-08-06] MEDS ORDERED: DEXTROSE 50% IN WATER 50 ML VIAL(D50) IV PUSH PRN (10:00)
--- NOTE | 2017-08-06 10:02 | PD.CAR.PN ---
CVT Progress Note CVT: POD #: 1 Subjective/Hospital Course: The patient apparently presented to Dr. Carmen for second opinion, was recently worked up by Dr. Street and wanted a second opinion for cardiac status. He had a stress test because of chest discomfort from a recent lung infection. Cath was recommended. He had been complaining of fatigue and some night sweats, lightheaded when he wakes up in the morning. No shortness of breath or palpitations. He does use a step machine at home. He gets some chest pressure from walking up a flight of stairs at home. Denies any prior history of heart disease. He is rather active, still drives and walks on a daily basis. His cardiac catheterization showed left main disease of 75%, proximal LAD 90%mid to distal LAD 90%, diagonal 75%, RCA 75, EF is 65%. His stress test showed some ischemia in the anterior wall involving the LAD distribution. PAST MEDICAL HISTORY: Hypertension, Benign prostatic hypertrophy, Gastroesophageal reflux disease 08/04 pt doing well , no chest pain for surgery in am carotid US ok ct chest : . Nodule left upper lobe measuring up to 8 mm in diameter. Short term followup CT recommended. Minimal basilar lung scarring. No effusion or adenopathy. 08/06/17 doing well s/p CABG, c/o left chest wall pain Objective: Vital Signs Date Time Temp Pulse Resp B/P (MAP) Pulse Ox O2 Delivery O2 Flow Rate FiO2 08/06/17 08:00 84 08/06/17 04:00 83 08/06/17 04:00 98.0 84 16 100/53 (69) 98 125/53 (77) 08/06/17 01:44 16 08/06/17 01:41 16 08/06/17 00:00 99.0 85 16 104/63 (77) 98 123/56 (78) 08/06/17 00:00 89 08/05/17 23:30 98.6 08/05/17 20:53 96 Nasal Cannula 2.00 08/05/17 19:55 98.6 08/05/17 19:30 76 08/05/17 19:30 97.0 76 18 102/65 (77) 96 105/49 (67) 08/05/17 18:00 75 08/05/17 17:36 98 Nasal Cannula 3.00 08/05/17 17:10 99 Nasal Cannula 4.00 1/26/18 17:00 98 Nasal Cannula 4 08/05/17 16:25 59 08/05/17 16:00 40 08/05/17 16:00 68 08/05/17 16:00 97.5 68 19 117/68 (84) 97 128/58 (81) 08/05/17 16:00 68 08/05/17 15:25 98 40 08/05/17 13:30 97.5 08/05/17 13:00 67 08/05/17 13:00 97.5 08/05/17 13:00 97.5 67 12 82/49 (60) 99 103/46 (65) 08/05/17 13:00 50 08/05/17 12:34 97 40 Labs: Laboratory Tests Test 08/06/17 04:00 White Blood Count 17.8 TH/MM3 (4.0-11.0) Red Blood Count 4.05 MIL/MM3 (4.50-5.90) Hemoglobin 12.0 GM/DL (13.0-17.0) Hematocrit 35.2 % (39.0-51.0) Mean Corpuscular Volume 86.8 FL (80.0-100.0) Mean Corpuscular Hemoglobin 29.5 PG (27.0-34.0) Mean Corpuscular Hemoglobin Concent 34.0 % (32.0-36.0) Red Cell Distribution Width 14.3 % (11.6-17.2) Platelet Count 142 TH/MM3 (150-450) Mean Platelet Volume 8.0 FL (7.0-11.0) Blood Urea Nitrogen 17 MG/DL (7-18) Creatinine 0.95 MG/DL (0.60-1.30) Random Glucose 103 MG/DL (74-106) Calcium Level 9.1 MG/DL (8.5-10.1) Magnesium Level 2.4 MG/DL (1.5-2.5) Sodium Level 142 MEQ/L (136-145) Potassium Level 4.6 MEQ/L (3.5-5.1) Chloride Level 108 MEQ/L (98-107) Carbon Dioxide Level 25.5 MEQ/L (21.0-32.0) Anion Gap 9 MEQ/L (5-15) Estimat Glomerular Filtration Rate 75 ML/MIN (>89) Result Diagram: 08/06/17 0400 08/06/17 0400 Imaging: Last Impressions Chest X-Ray 08/06/17 0500 Signed Impressions: Service Date/Time: Sunday, August 06, 2017 03:38 - CONCLUSION: No acute disease. Juancho Sutton MD Lower Extremity Ultrasound 08/03/17 0000 Signed Impressions: Service Date/Time: Thursday, August 03, 2017 18:12 - CONCLUSION: 1. Venous measurements as above. Ladarius Villalta MD Chest CT 08/03/17 0000 Signed Impressions: Service Date/Time: Thursday, August 03, 2017 17:36 - CONCLUSION: 1. Nodule left upper lobe measuring up to 8 mm in diameter. Short term followup CT recommended. Minimal basilar lung scarring. No effusion or adenopathy. Ladarius Villalta MD Carotid Artery Ultrasound 08/03/17 0000 Signed Impressions: Service Date/Time: Thursday, August 03, 2017 18:30 - CONCLUSION: 1. Mild visible plaque without carotid stenosis. Ladarius Villalta MD Cardiovascular: RRR Telemetry: NSR Pulmonary: CTA GI/: NABS, NT Incision: dry and intact CT: 180ml/12hr Plan: Tx to stepdown Encourage ambulation diurese Advance diet Remove Pineda Continue ASA, statin (1) Coronary artery disease Plan: for surgery in am (2) Hypertension (3) GERD (gastroesophageal reflux disease) (4) BPH (benign prostatic hyperplasia) Disha Shankar MD Aug 06, 2017 10:02
[2017-08-06] MEDS: oxyCODONE/ACETAMINOPHEN 5 MG/325 MG TAB PO PRN ×3 (10:33→23:38)
[2017-08-06] MEDS: MAGNESIUM OXIDE 400 MG TAB PO SCH (11:04)
--- NOTE | 2017-08-06 14:49 | EKG ---
Date Performed: 08/06/2017 Time Performed: 05:54:56 PTAGE: 87 years EKG: Sinus rhythm with 1st degree A-V block Abnormal ECG NO PREVIOUS TRACING Clinical correlation is recommended. DOCTOR: Gonzalez Parsons Interpretating Date/Time 08/06/2017 14:47:30
[2017-08-06] MEDS: SENNOSIDES 8.6 MG TAB PO SCH (21:00)
[2017-08-06] MEDS: DOCUSATE SODIUM 100 MG CAP PO SCH (21:36)
[2017-08-06] MEDS: TERAZOSIN HCL 1 MG CAP PO SCH (21:36)
[2017-08-06] MEDS: ATORVASTATIN 20 MG TAB PO SCH (21:37)
[2017-08-07] VITALS (28 sets, daily range): BP systolic 97–109; BP diastolic 54–62; PULSE 70–86; RESP 14–18; TEMP 98.4–100.5; O2SAT 92–95
[2017-08-07] MEDS: INSULIN ASPART SUPPLEMENTAL SCALE SQ SCH ×5 (02:00→21:00)
[2017-08-07 04:57] LABS: AUTOMATED NEUTROPHIL # 13.9 TH/MM3 (1.8-7.7); BASOPHIL % 0.1 % (0.0-2.0); HEMOGLOBIN 10.3 GM/DL (13.0-17.0); LYMPH % 6.4 % (9.0-44.0); LYMPHOCYTE # 1.1 TH/MM3 (1.0-4.8); MEAN CELL VOLUME 87.3 FL (80.0-100.0); MEAN CORPUSCULAR HEMOGLOBIN 28.9 PG (27.0-34.0); MEAN CORPUSCULAR HGB CONC 33.1 % (32.0-36.0); MEAN PLATELET VOLUME 7.5 FL (7.0-11.0); MONO % 10.7 % (0.0-8.0); MONOCYTE # 1.8 TH/MM3 (0-0.9); NEUT % 82.8 % (16.0-70.0); PLATELET COUNT 129 TH/MM3 (150-450); RED BLOOD COUNT 3.55 MIL/MM3 (4.50-5.90); RED CELL DISTRIBUTION WIDTH 14.5 % (11.6-17.2); WHITE BLOOD COUNT 16.8 TH/MM3 (4.0-11.0)
[2017-08-07 05:24] LABS: BICARBONATE 28.1 MEQ/L (21.0-32.0); CALCIUM 7.6 MG/DL (8.5-10.1); CREATININE 1.12 MG/DL (0.60-1.30); MAGNESIUM 2.1 MG/DL (1.5-2.5)
[2017-08-07] MEDS: PANTOPRAZOLE SOD 40 MG DELAYED RELEASE TAB PO SCH (06:02)
[2017-08-07] MEDS: POLYETHYLENE GLYCOL 17 GM PKG PO SCH (08:26)
[2017-08-07] MEDS: MAGNESIUM HYDROXIDE SUSP 30 ML CUP PO SCH (08:26)
[2017-08-07] MEDS: DOCUSATE SODIUM 100 MG CAP PO SCH ×2 (08:28→20:48)
[2017-08-07] MEDS: ASPIRIN 81 MG CHEW TAB PO SCH (08:28)
[2017-08-07] MEDS: amLODIPine BESYLATE 5 MG TAB PO SCH (08:28)
[2017-08-07] MEDS: FUROSEMIDE 40 MG/4 ML VIAL IV PUSH SCH (08:28)
[2017-08-07] MEDS: MULTIVITAMINS/MINERALS THERAPEUTIC TAB PO SCH (08:28)
[2017-08-07] MEDS: oxyCODONE/ACETAMINOPHEN 5 MG/325 MG TAB PO PRN (08:29)
[2017-08-07] MEDS: FINASTERIDE 5 MG TAB PO SCH (08:29)
[2017-08-07] MEDS: SODIUM CHLORIDE 0.9% FLUSH 10 ML FLUSH IV FLUSH SCH ×2 (08:29→20:49)
[2017-08-07] MEDS: ONDANSETRON HCL 4 MG/2 ML VIAL IV PUSH PRN (09:54)
--- NOTE | 2017-08-07 10:02 | PD.CAR.PN ---
CVT Progress Note CVT: POD #: 2 Subjective/Hospital Course: The patient apparently presented to Dr. Carmen for second opinion, was recently worked up by Dr. Street and wanted a second opinion for cardiac status. He had a stress test because of chest discomfort from a recent lung infection. Cath was recommended. He had been complaining of fatigue and some night sweats, lightheaded when he wakes up in the morning. No shortness of breath or palpitations. He does use a step machine at home. He gets some chest pressure from walking up a flight of stairs at home. Denies any prior history of heart disease. He is rather active, still drives and walks on a daily basis. His cardiac catheterization showed left main disease of 75%, proximal LAD 90%mid to distal LAD 90%, diagonal 75%, RCA 75, EF is 65%. His stress test showed some ischemia in the anterior wall involving the LAD distribution. PAST MEDICAL HISTORY: Hypertension, Benign prostatic hypertrophy, Gastroesophageal reflux disease 08/04 pt doing well , no chest pain for surgery in am carotid US ok ct chest : . Nodule left upper lobe measuring up to 8 mm in diameter. Short term followup CT recommended. Minimal basilar lung scarring. No effusion or adenopathy. 08/06/17 doing well s/p CABG, c/o left chest wall pain 08/07/17 c/o nausea otherwise, no complaints Objective: Vital Signs Date Time Temp Pulse Resp B/P (MAP) Pulse Ox O2 Delivery O2 Flow Rate FiO2 08/07/17 09:40 18 08/07/17 09:00 78 08/07/17 08:00 82 08/07/17 07:32 94 21 08/07/17 07:15 98.4 79 18 102/55 (71) 92 08/07/17 07:00 83 08/07/17 06:00 86 08/07/17 05:00 78 08/07/17 04:00 76 08/07/17 03:00 100.5 86 14 108/57 (74) 92 08/07/17 03:00 86 08/07/17 02:00 80 08/07/17 01:00 82 08/07/17 00:00 82 08/06/17 23:00 99.1 82 14 110/62 (78) 94 08/06/17 23:00 82 08/06/17 22:00 84 08/06/17 21:00 68 08/06/17 20:00 72 08/06/17 19:00 97.6 83 14 126/58 (80) 96 Arterial Line 08/06/17 19:00 83 08/06/17 18:00 68 08/06/17 17:00 72 08/06/17 16:30 77 16 132/61 (84) 95 08/06/17 16:00 70 08/06/17 15:00 70 08/06/17 15:00 98.2 70 16 128/65 (86) 98 08/06/17 15:00 67 08/06/17 11:00 67 20 107/60 (76) 98 08/06/17 11:00 67 08/06/17 11:00 67 08/06/17 10:28 94 Nasal Cannula 2.00 Labs: Laboratory Tests Test 08/07/17 04:35 White Blood Count 16.8 TH/MM3 (4.0-11.0) Red Blood Count 3.55 MIL/MM3 (4.50-5.90) Hemoglobin 10.3 GM/DL (13.0-17.0) Hematocrit 31.0 % (39.0-51.0) Mean Corpuscular Volume 87.3 FL (80.0-100.0) Mean Corpuscular Hemoglobin 28.9 PG (27.0-34.0) Mean Corpuscular Hemoglobin Concent 33.1 % (32.0-36.0) Red Cell Distribution Width 14.5 % (11.6-17.2) Platelet Count 129 TH/MM3 (150-450) Mean Platelet Volume 7.5 FL (7.0-11.0) Neutrophils (%) (Auto) 82.8 % (16.0-70.0) Lymphocytes (%) (Auto) 6.4 % (9.0-44.0) Monocytes (%) (Auto) 10.7 % (0.0-8.0) Eosinophils (%) (Auto) 0.0 % (0.0-4.0) Basophils (%) (Auto) 0.1 % (0.0-2.0) Neutrophils # (Auto) 13.9 TH/MM3 (1.8-7.7) Lymphocytes # (Auto) 1.1 TH/MM3 (1.0-4.8) Monocytes # (Auto) 1.8 TH/MM3 (0-0.9) Eosinophils # (Auto) 0.0 TH/MM3 (0-0.4) Basophils # (Auto) 0.0 TH/MM3 (0-0.2) CBC Comment DIFF FINAL Differential Comment Blood Urea Nitrogen 25 MG/DL (7-18) Creatinine 1.12 MG/DL (0.60-1.30) Random Glucose 117 MG/DL (74-106) Calcium Level 7.6 MG/DL (8.5-10.1) Magnesium Level 2.1 MG/DL (1.5-2.5) Sodium Level 136 MEQ/L (136-145) Potassium Level 4.5 MEQ/L (3.5-5.1) Chloride Level 103 MEQ/L (98-107) Carbon Dioxide Level 28.1 MEQ/L (21.0-32.0) Anion Gap 5 MEQ/L (5-15) Estimat Glomerular Filtration Rate 62 ML/MIN (>89) Result Diagram: 08/07/17 0435 08/07/17 0435 Imaging: Last Impressions Chest X-Ray 08/06/17 0500 Signed Impressions: Service Date/Time: Sunday, August 06, 2017 03:38 - CONCLUSION: No acute disease. Juancho Sutton MD Lower Extremity Ultrasound 08/03/17 0000 Signed Impressions: Service Date/Time: Thursday, August 03, 2017 18:12 - CONCLUSION: 1. Venous measurements as above. Ladarius Villalta MD Chest CT 08/03/17 0000 Signed Impressions: Service Date/Time: Thursday, August 03, 2017 17:36 - CONCLUSION: 1. Nodule left upper lobe measuring up to 8 mm in diameter. Short term followup CT recommended. Minimal basilar lung scarring. No effusion or adenopathy. Ladarius Villalta MD Carotid Artery Ultrasound 08/03/17 0000 Signed Impressions: Service Date/Time: Thursday, August 03, 2017 18:30 - CONCLUSION: 1. Mild visible plaque without carotid stenosis. Ladarius Villalta MD Cardiovascular: RRR Telemetry: NSR Pulmonary: CTA GI/: NABS, NT Incision: dry and intact CT: 200ml/12 hrs Plan: Encourage ambulation Continue chest tubes to water seal Encourage PO, stim BM No BB secondary to low BP (1) Coronary artery disease Plan: for surgery in am (2) Hypertension (3) GERD (gastroesophageal reflux disease) (4) BPH (benign prostatic hyperplasia) Disha Shankar MD Aug 07, 2017 10:02
[2017-08-07] MEDS: MAGNESIUM OXIDE 400 MG TAB PO SCH (11:21)
[2017-08-07] MEDS: ATORVASTATIN 20 MG TAB PO SCH (20:47)
[2017-08-07] MEDS: TERAZOSIN HCL 1 MG CAP PO SCH (20:48)
[2017-08-07] MEDS: SENNOSIDES 8.6 MG TAB PO SCH (20:48)
[2017-08-08] VITALS (22 sets, daily range): BP systolic 95–133; BP diastolic 51–69; PULSE 60–78; RESP 14–17; TEMP 98–98.8; O2SAT 93–95
[2017-08-08] MEDS: oxyCODONE/ACETAMINOPHEN 5 MG/325 MG TAB PO PRN ×2 (00:02→09:22)
[2017-08-08 04:28] LABS: HEMOGLOBIN 9.7 GM/DL (13.0-17.0); MEAN CELL VOLUME 87.1 FL (80.0-100.0); MEAN CORPUSCULAR HEMOGLOBIN 29.1 PG (27.0-34.0); MEAN CORPUSCULAR HGB CONC 33.4 % (32.0-36.0); MEAN PLATELET VOLUME 7.9 FL (7.0-11.0); PLATELET COUNT 129 TH/MM3 (150-450); RED BLOOD COUNT 3.34 MIL/MM3 (4.50-5.90); RED CELL DISTRIBUTION WIDTH 14.4 % (11.6-17.2); WHITE BLOOD COUNT 12.5 TH/MM3 (4.0-11.0)
[2017-08-08 04:51] LABS: BICARBONATE 30.7 MEQ/L (21.0-32.0); CALCIUM 7.7 MG/DL (8.5-10.1); CREATININE 0.95 MG/DL (0.60-1.30); MAGNESIUM 2.2 MG/DL (1.5-2.5)
[2017-08-08] MEDS: PANTOPRAZOLE SOD 40 MG DELAYED RELEASE TAB PO SCH (05:53)
[2017-08-08] MEDS: INSULIN ASPART SUPPLEMENTAL SCALE SQ SCH ×4 (08:23→20:25)
[2017-08-08] MEDS: POLYETHYLENE GLYCOL 17 GM PKG PO SCH (09:20)
[2017-08-08] MEDS: MULTIVITAMINS/MINERALS THERAPEUTIC TAB PO SCH (09:20)
[2017-08-08] MEDS: FINASTERIDE 5 MG TAB PO SCH (09:20)
[2017-08-08] MEDS: DOCUSATE SODIUM 100 MG CAP PO SCH ×2 (09:20→20:27)
[2017-08-08] MEDS: ASPIRIN 81 MG CHEW TAB PO SCH (09:20)
[2017-08-08] MEDS: MAGNESIUM HYDROXIDE SUSP 30 ML CUP PO SCH (09:20)
[2017-08-08] MEDS: amLODIPine BESYLATE 5 MG TAB PO SCH (09:21)
[2017-08-08] MEDS: FUROSEMIDE 40 MG/4 ML VIAL IV PUSH SCH (09:21)
[2017-08-08] MEDS: SODIUM CHLORIDE 0.9% FLUSH 10 ML FLUSH IV FLUSH SCH ×2 (09:21→20:27)
[2017-08-08] MEDS: MAGNESIUM OXIDE 400 MG TAB PO SCH (11:40)
--- NOTE | 2017-08-08 12:01 | PD.CAR.PN ---
CVT Progress Note Subjective/Hospital Course: The patient apparently presented to Dr. Carmen for second opinion, was recently worked up by Dr. Street and wanted a second opinion for cardiac status. He had a stress test because of chest discomfort from a recent lung infection. Cath was recommended. He had been complaining of fatigue and some night sweats, lightheaded when he wakes up in the morning. No shortness of breath or palpitations. He does use a step machine at home. He gets some chest pressure from walking up a flight of stairs at home. Denies any prior history of heart disease. He is rather active, still drives and walks on a daily basis. His cardiac catheterization showed left main disease of 75%, proximal LAD 90%mid to distal LAD 90%, diagonal 75%, RCA 75, EF is 65%. His stress test showed some ischemia in the anterior wall involving the LAD distribution. PAST MEDICAL HISTORY: Hypertension, Benign prostatic hypertrophy, Gastroesophageal reflux disease 08/04 pt doing well , no chest pain for surgery in am carotid US ok ct chest : . Nodule left upper lobe measuring up to 8 mm in diameter. Short term followup CT recommended. Minimal basilar lung scarring. No effusion or adenopathy. 08/06/17 doing well s/p CABG, c/o left chest wall pain 08/07/17 c/o nausea otherwise, no complaints 08/08 chest tube dc without difficulty , check CXR in am OOB ambulate No Beta noemi with preop and postop bradycardia has some nausea, no BM since surgery c/o of some nausea / will dc Percocet , change to ultra Objective: GENERAL: A&O x 3 SKIN: Warm and dry. prevena dressing to chest , leg incision left intact HEAD: Normocephalic. EYES: No scleral icterus. No injection or drainage. NECK: Supple, trachea midline. No JVD or lymphadenopathy. CARDIOVASCULAR: Regular rate and rhythm without murmurs, gallops, or rubs. A wires removed RESPIRATORY: Breath sounds equal bilaterally. No accessory muscle use. diminished in bases, otherwise CTA GASTROINTESTINAL: Abdomen soft, non-tender, nondistended. MUSCULOSKELETAL: No cyanosis, or edema. BACK: Nontender without obvious deformity. No CVA tenderness. Vital Signs Date Time Temp Pulse Resp B/P (MAP) Pulse Ox O2 Delivery O2 Flow Rate FiO2 08/08/17 11:00 93 Room Air 08/08/17 11:00 68 08/08/17 11:00 98.3 78 14 99/55 (70) 93 08/08/17 10:23 14 08/08/17 10:00 76 08/08/17 09:00 77 08/08/17 08:04 93 21 08/08/17 08:00 98.3 76 14 103/51 (68) 94 08/08/17 08:00 75 08/08/17 07:00 74 08/08/17 06:00 72 08/08/17 05:00 68 08/08/17 04:00 60 08/08/17 03:00 67 08/08/17 03:00 98.8 68 17 123/69 (87) 94 08/08/17 02:00 66 08/08/17 01:00 68 08/08/17 00:00 66 08/07/17 23:00 98.4 72 18 107/62 (77) 94 08/07/17 23:00 74 08/07/17 22:00 76 08/07/17 21:00 74 08/07/17 20:00 74 08/07/17 19:00 70 08/07/17 19:00 98.7 80 18 97/54 (68) 95 08/07/17 18:00 74 08/07/17 17:00 72 08/07/17 16:00 70 08/07/17 15:55 98.7 72 18 109/57 (74) 95 08/07/17 15:00 70 08/07/17 14:00 72 08/07/17 13:00 80 08/07/17 12:00 76 Labs: Laboratory Tests Test 08/08/17 04:10 White Blood Count 12.5 TH/MM3 (4.0-11.0) Red Blood Count 3.34 MIL/MM3 (4.50-5.90) Hemoglobin 9.7 GM/DL (13.0-17.0) Hematocrit 29.0 % (39.0-51.0) Mean Corpuscular Volume 87.1 FL (80.0-100.0) Mean Corpuscular Hemoglobin 29.1 PG (27.0-34.0) Mean Corpuscular Hemoglobin Concent 33.4 % (32.0-36.0) Red Cell Distribution Width 14.4 % (11.6-17.2) Platelet Count 129 TH/MM3 (150-450) Mean Platelet Volume 7.9 FL (7.0-11.0) Blood Urea Nitrogen 22 MG/DL (7-18) Creatinine 0.95 MG/DL (0.60-1.30) Random Glucose 94 MG/DL (74-106) Calcium Level 7.7 MG/DL (8.5-10.1) Magnesium Level 2.2 MG/DL (1.5-2.5) Sodium Level 137 MEQ/L (136-145) Potassium Level 4.2 MEQ/L (3.5-5.1) Chloride Level 102 MEQ/L (98-107) Carbon Dioxide Level 30.7 MEQ/L (21.0-32.0) Anion Gap 4 MEQ/L (5-15) Estimat Glomerular Filtration Rate 75 ML/MIN (>89) Result Diagram: 08/08/1740908/08/17409 Telemetry: NSR (1) Coronary artery disease Plan: ASA, statin no BB 2/2 preop and postop bradycardia OOB, ambulate on room air cm to eval for HHC at discharge (2) Hypertension Plan: controlled (3) GERD (gastroesophageal reflux disease) Plan: on PPI (4) BPH (benign prostatic hyperplasia) Plan: on Karrie Haji Aug 08, 2017 12:01
[2017-08-08] MEDS ORDERED: ACETAMINOPHEN 325 MG TAB PO PRN (12:15)
[2017-08-08] MEDS ORDERED: traMADol HCL 50 MG TAB PO PRN (12:15)
[2017-08-08] MEDS: SENNOSIDES 8.6 MG TAB PO SCH (20:26)
[2017-08-08] MEDS: ATORVASTATIN 20 MG TAB PO SCH (20:26)
[2017-08-08] MEDS: TERAZOSIN HCL 1 MG CAP PO SCH (20:26)
[2017-08-09] VITALS (22 sets, daily range): BP systolic 94–124; BP diastolic 57–94; PULSE 61–95; RESP 17–18; TEMP 97.2–98.2; O2SAT 92–96
[2017-08-09] MEDS: PANTOPRAZOLE SOD 40 MG DELAYED RELEASE TAB PO SCH (05:34)
[2017-08-09] MEDS: MULTIVITAMINS/MINERALS THERAPEUTIC TAB PO SCH (07:50)
[2017-08-09] MEDS: MAGNESIUM HYDROXIDE SUSP 30 ML CUP PO SCH (07:50)
[2017-08-09] MEDS: DOCUSATE SODIUM 100 MG CAP PO SCH (07:50)
[2017-08-09] MEDS: POLYETHYLENE GLYCOL 17 GM PKG PO SCH (07:50)
[2017-08-09] MEDS: FUROSEMIDE 40 MG/4 ML VIAL IV PUSH SCH (07:51)
[2017-08-09] MEDS: amLODIPine BESYLATE 5 MG TAB PO SCH (07:51)
[2017-08-09] MEDS: ASPIRIN 81 MG CHEW TAB PO SCH (07:51)
[2017-08-09] MEDS: FINASTERIDE 5 MG TAB PO SCH (07:51)
[2017-08-09] MEDS: SODIUM CHLORIDE 0.9% FLUSH 10 ML FLUSH IV FLUSH SCH ×2 (07:55→21:17)
[2017-08-09] MEDS: INSULIN ASPART SUPPLEMENTAL SCALE SQ SCH ×4 (08:00→21:00)
[2017-08-09] MEDS: MAGNESIUM OXIDE 400 MG TAB PO SCH (11:07)
[2017-08-09] MEDS ORDERED: MAGNESIUM HYDROXIDE SUSP 30 ML CUP PO PRN (15:00)
[2017-08-09] MEDS ORDERED: DOCUSATE SODIUM 100 MG CAP PO PRN (15:00)
--- NOTE | 2017-08-09 15:06 | PD.CAR.PN ---
CVT Progress Note Subjective/Hospital Course: The patient apparently presented to Dr. Carmen for second opinion, was recently worked up by Dr. Street and wanted a second opinion for cardiac status. He had a stress test because of chest discomfort from a recent lung infection. Cath was recommended. He had been complaining of fatigue and some night sweats, lightheaded when he wakes up in the morning. No shortness of breath or palpitations. He does use a step machine at home. He gets some chest pressure from walking up a flight of stairs at home. Denies any prior history of heart disease. He is rather active, still drives and walks on a daily basis. His cardiac catheterization showed left main disease of 75%, proximal LAD 90%mid to distal LAD 90%, diagonal 75%, RCA 75, EF is 65%. His stress test showed some ischemia in the anterior wall involving the LAD distribution. PAST MEDICAL HISTORY: Hypertension, Benign prostatic hypertrophy, Gastroesophageal reflux disease 08/04 pt doing well , no chest pain for surgery in am carotid US ok ct chest : . Nodule left upper lobe measuring up to 8 mm in diameter. Short term followup CT recommended. Minimal basilar lung scarring. No effusion or adenopathy. 08/06/17 doing well s/p CABG, c/o left chest wall pain 08/07/17 c/o nausea otherwise, no complaints 08/08 chest tube dc without difficulty , check CXR in am OOB ambulate No Beta noemi with preop and postop bradycardia has some nausea, no BM since surgery c/o of some nausea / will dc Percocet , change to ultram 08/09 pt intermittent afib slow rvr junctional, no BB , no amiodarone will start eliquis bid had some diarrhea today , all GI meds prn waiting on discharge decision by family / rehab or HHC Objective: GENERAL: A&O x 3 SKIN: Warm and dry. prevena dressing to chest HEAD: Normocephalic. EYES: No scleral icterus. No injection or drainage. NECK: Supple, trachea midline. No JVD or lymphadenopathy. CARDIOVASCULAR: irregular rhythm rate and rhythm without murmurs, gallops, or rubs. RESPIRATORY: Breath sounds equal bilaterally. No accessory muscle use. GASTROINTESTINAL: Abdomen soft, non-tender, nondistended. MUSCULOSKELETAL: No cyanosis, or edema. BACK: Nontender without obvious deformity. No CVA tenderness. Vital Signs Date Time Temp Pulse Resp B/P (MAP) Pulse Ox O2 Delivery O2 Flow Rate FiO2 08/09/17 14:01 80 08/09/17 13:43 78 08/09/17 12:12 95 08/09/17 11:19 78 08/09/17 11:19 95 Room Air 08/09/17 11:19 98.0 78 18 94/57 (69) 95 08/09/17 10:14 96 Room Air 08/09/17 10:14 76 08/09/17 09:31 77 08/09/17 08:54 18 08/09/17 08:15 98.2 78 18 118/68 (85) 96 08/09/17 08:15 79 08/09/17 06:02 71 08/09/17 05:00 72 08/09/17 04:00 75 08/09/17 03:43 98.2 75 17 112/63 (79) 92 08/09/17 03:00 61 08/09/17 02:00 64 08/09/17 01:00 62 08/08/17 23:00 98.0 77 17 133/61 (85) 94 08/08/17 23:00 77 08/08/17 19:00 98.6 75 17 100/65 (77) 95 08/08/17 19:00 77 08/08/17 18:00 77 08/08/17 17:00 75 08/08/17 16:00 75 Result Diagram: 08/08/1740908/08/17 041 Telemetry: afib (1) Coronary artery disease Plan: ASA, statin no BB 2/2 preop and postop bradycardia on eliquis OOB, ambulate on room air cm to eval for [facility] at discharge (2) Hypertension Plan: controlled (3) GERD (gastroesophageal reflux disease) Plan: on PPI (4) BPH (benign prostatic hyperplasia) Plan: on hytrin (5) Afib Plan: no BB Karrie Patel Aug 09, 2017 15:06
[2017-08-09] MEDS: SENNOSIDES 8.6 MG TAB PO SCH (21:00)
[2017-08-09] MEDS: APIXABAN 5 MG TABLET PO SCH (21:14)
[2017-08-09] MEDS: ATORVASTATIN 20 MG TAB PO SCH (21:15)
[2017-08-09] MEDS: TERAZOSIN HCL 1 MG CAP PO SCH (21:17)
[2017-08-10] VITALS (17 sets, daily range): BP systolic 104–115; BP diastolic 56–59; PULSE 56–78; RESP 17–18; TEMP 97.6–98.1; O2SAT 93–96
--- NOTE | 2017-08-10 00:16 | EKG ---
Date Performed: 08/09/2017 Time Performed: 09:47:56 PTAGE: 87 years EKG: Probable atrial flutter with 4:1 A-V block. Abnormal ECG Compared to prior tracing, now ap pears to be in Aflutter DOCTOR: Clyde Mcadams Interpretating Date/Time 08/10/2017 00:16:03
[2017-08-10] MEDS: PANTOPRAZOLE SOD 40 MG DELAYED RELEASE TAB PO SCH (05:20)
[2017-08-10] MEDS: INSULIN ASPART SUPPLEMENTAL SCALE SQ SCH ×2 (08:00→12:00)
[2017-08-10] MEDS: POLYETHYLENE GLYCOL 17 GM PKG PO SCH (09:00)
[2017-08-10] MEDS: SODIUM CHLORIDE 0.9% FLUSH 10 ML FLUSH IV FLUSH SCH (10:43)
[2017-08-10] MEDS: FUROSEMIDE 40 MG/4 ML VIAL IV PUSH SCH (10:44)
[2017-08-10] MEDS: MULTIVITAMINS/MINERALS THERAPEUTIC TAB PO SCH (10:45)
[2017-08-10] MEDS: ASPIRIN 81 MG CHEW TAB PO SCH (10:46)
[2017-08-10] MEDS: APIXABAN 5 MG TABLET PO SCH (10:46)
[2017-08-10] MEDS: FINASTERIDE 5 MG TAB PO SCH (10:47)
[2017-08-10] MEDS: amLODIPine BESYLATE 5 MG TAB PO SCH (10:47)
[2017-08-10] MEDS: MAGNESIUM OXIDE 400 MG TAB PO SCH (13:35)
[2017-08-10] MEDS ORDERED: APIX5TAB PO (14:07)
[2017-08-10] MEDS ORDERED: DOCU1CAP39 PO (14:08)
[2017-08-10] MEDS ORDERED: FURO1TAB60 PO (14:08)
[2017-08-10] MEDS ORDERED: POTA-163 PO (14:08)
[2017-08-10] MEDS ORDERED: ASPI81 PO (14:08)
[2017-08-10] MEDS ORDERED: TRAM50 PO (14:08)
[2017-08-10] MEDS ORDERED: THERM PO (14:08)
[2017-08-10] MEDS ORDERED: WALKER WHEELS/F1 MIS (14:10)
--- NOTE | 2017-08-10 14:15 | HHI.DS ---
Discharge Summary Admission Date Aug 03, 2017 at 14:24 Discharge Date: Aug 10, 2017 Admitting Diagnosis chest pain , CAD (1) GERD (gastroesophageal reflux disease) Diagnosis: Principal ICD Codes: K21.9 - Gastro-esophageal reflux disease without esophagitis Status: Chronic (2) Coronary artery disease Diagnosis: Principal ICD Codes: I25.10 - Atherosclerotic heart disease of [place] coronary artery without angina pectoris Status: Chronic (3) Hypertension Diagnosis: Principal ICD Codes: I10 - Essential (primary) hypertension (4) BPH (benign prostatic hyperplasia) Diagnosis: Principal ICD Codes: N40.0 - Benign prostatic hyperplasia without lower urinary tract symptoms (5) Angina pectoris Diagnosis: Principal ICD Codes: I20.9 - Angina pectoris, unspecified Status: Acute (6) Afib Diagnosis: Principal ICD Codes: I48.91 - Unspecified atrial fibrillation Status: Acute (7) S/P CABG (coronary artery bypass graft) Diagnosis: Secondary ICD Codes: Z95.1 - Presence of aortocoronary bypass graft Procedures CABG x 4 08/05 GRAFF to LAD - good SVG to D1 - good SVG to OM1 - good SVG to RCA - good EVH Brief History he patient apparently presented to Dr. Carmen for second opinion, was recently worked up by Dr. Street and wanted a second opinion for cardiac status. He had a stress test because of chest discomfort from a recent lung infection. Cath was recommended. He had been complaining of fatigue and some night sweats, lightheaded when he wakes up in the morning. No shortness of breath or palpitations. He does use a step machine at home. He gets some chest pressure from walking up a flight of stairs at home. Denies any prior history of heart disease. He is rather active, still drives and walks on a daily basis. His cardiac catheterization showed left main disease of 75%, proximal LAD 90%mid to distal LAD 90%, diagonal 75%, RCA 75, EF is 65%. His stress test showed some ischemia in the anterior wall involving the LAD distribution. PAST MEDICAL HISTORY: Hypertension, Benign prostatic hypertrophy, Gastroesophageal reflux disease CBC/BMP: 08/08/17 0410 08/08/17 0410 Significant Findings Laboratory Tests Test 08/08/17 04:10 White Blood Count 12.5 TH/MM3 (4.0-11.0) Red Blood Count 3.34 MIL/MM3 (4.50-5.90) Hemoglobin 9.7 GM/DL (13.0-17.0) Hematocrit 29.0 % (39.0-51.0) Platelet Count 129 TH/MM3 (150-450) Blood Urea Nitrogen 22 MG/DL (7-18) Calcium Level 7.7 MG/DL (8.5-10.1) Anion Gap 4 MEQ/L (5-15) Estimat Glomerular Filtration Rate 75 ML/MIN (>89) Imaging Last Impressions Chest X-Ray 08/06/17 0500 Signed Impressions: Service Date/Time: Sunday, August 06, 2017 03:38 - CONCLUSION: No acute disease. Juancho Sutton MD Lower Extremity Ultrasound 08/03/17 0000 Signed Impressions: Service Date/Time: Thursday, August 03, 2017 18:12 - CONCLUSION: 1. Venous measurements as above. Ladarius Villalta MD Chest CT 08/03/17 0000 Signed Impressions: Service Date/Time: Thursday, August 03, 2017 17:36 - CONCLUSION: 1. Nodule left upper lobe measuring up to 8 mm in diameter. Short term followup CT recommended. Minimal basilar lung scarring. No effusion or adenopathy. Ladarius Villalta MD Carotid Artery Ultrasound 08/03/17 0000 Signed Impressions: Service Date/Time: Thursday, August 03, 2017 18:30 - CONCLUSION: 1. Mild visible plaque without carotid stenosis. Ladarius Villalta MD PE at Discharge GENERAL: A& O x 3 SKIN: Warm and dry. prevena dressing to chest, incision intact to leg HEAD: Normocephalic. EYES: No scleral icterus. No injection or drainage. NECK: Supple, trachea midline. No JVD or lymphadenopathy. CARDIOVASCULAR: irregular rate and rhythm without murmurs, gallops, or rubs. + 1 -2 edema lower ext RESPIRATORY: Breath sounds equal bilaterally. No accessory muscle use. GASTROINTESTINAL: Abdomen soft, non-tender, nondistended. MUSCULOSKELETAL: No cyanosis, or edema. BACK: Nontender without obvious deformity. No CVA tenderness. Hospital Course 08/04 pt doing well , no chest pain for surgery in am carotid US ok ct chest : . Nodule left upper lobe measuring up to 8 mm in diameter. Short term followup CT recommended. Minimal basilar lung scarring. No effusion or adenopathy. 08/06/17 doing well s/p CABG, c/o left chest wall pain 08/07/17 c/o nausea otherwise, no complaints 08/08 chest tube dc without difficulty , check CXR in am OOB ambulate No Beta noemi with preop and postop bradycardia has some nausea, no BM since surgery c/o of some nausea / will dc Percocet , change to ultram 08/09 pt intermittent afib slow rvr junctional, no BB , no amiodarone will start eliquis bid had some diarrhea today , all GI meds prn waiting on discharge decision by family / rehab or [facility] 08/10 pt remains in afib rate 60-70 on eliquis , no BB 2/2 bradycardia stable for dc home with son and [facility] Pt Condition on Discharge: Good Discharge Disposition: Discharge Home Discharge Instructions DIET: Follow Instructions for: Heart Healthy Diet Activities you can perform: Regular-No Restrictions, Full Weight Bearing, Shower Only-No Bath Activities to avoid: Strenuous Activity, Driving Additional Activity Instructio: no lifting > 8 lbs or gallon of milk Follow up Referrals: Cardiology - 4 Weeks with Lv Carmen MD PCP Follow-up - 2 Weeks with César Laguerre MD Surgical - 2 Weeks with Karrie Patel New Orders: BASIC METABOLIC PROF - 2 Weeks CBC NO DIFF - 2 Weeks X-RAY CHEST PA & LAT - 2 Weeks New Medications: Furosemide (Lasix) 40 Mg Tab 40 MG PO DAILY for edema , #7 TAB 1 Refill Potassium Chloride ER (Potassium Chloride ER) 20 Meq Tab 20 MEQ PO DAILY for Electrolyte Replacement for 7 Days, #7 TAB 1 Refill Walker with Front Wheels (Walker with Front Wheels) 1 Mis Mis EA .XX DIRECTED, #1 0 Refills Apixaban (Eliquis) 5 Mg Tab 5 MG PO BID for Blood Clot Prevention, #60 TAB 2 Refills Aspirin (Tgt Aspirin) 81 Mg Chw 81 MG PO DAILY for Blood Clot Prevention, #30 EA 2 Refills Docusate Sodium (Dok) 100 Mg Cap 100 MG PO DAILY PRN for MODERATE CONSTIPATION, #30 CAP 0 Refills Multiple Vitamins W/ Minerals (Thera M Plus) 1 Tab 1 TAB PO DAILY for multi vitamin, #30 TAB 2 Refills Tramadol (Ultram) 50 Mg Tab 50 MG PO Q6H PRN for PAIN SCALE 4 TO 10, #30 TAB 0 Refills Continued Medications: Amlodipine (Norvasc) 2.5 Mg Tab 2.5 MG PO DAILY for Blood Pressure Management, #30 TAB 0 Refills Ascorbic Acid ER (Vitamin C ER) 500 Mg Natacha 500 MG PO DAILY for Nutritional Supplement, TAB 0 Refills Atorvastatin (Atorvastatin) 20 Mg Tab 20 MG PO HS for Cholesterol Management, #30 TAB 0 Refills Cyanocobalamin (Vitamin B-12) 1,000 Mcg Subl 1000 MCG SL DAILY for Nutritional Supplement, TAB.SL 0 Refills Finasteride (Finasteride) 5 Mg Tab 5 MG PO DAILY for Manage Prostate Problems, #30 TAB 0 Refills Do not crush. Magnesium Oxide (Magnesium Oxide) 400 Mg Tab 400 MG PO DAILY for Nutritional Supplement, TAB 0 Refills Omeprazole (Omeprazole) 10 Mg Cap 10 MG PO DAILY, #30 CAP 0 Refills Terazosin (Terazosin) 2 Mg Cap 4 MG PO HS, #30 CAP 0 Refills Discontinued Medications: Aspirin (Aspirin) 325 Mg Tab 325 MG PO DAILY, #30 TAB 0 Refills Karrie Patel Aug 10, 2017 14:15
--- NOTE | 2017-08-15 12:34 | RSPPFT ---
DATE OF PROCEDURE: 08/03/17 COMMENTS: Spirometry demonstrates an FEV1 of 2.4 at 79% of predicted, FVC of 2.8 at 68%, FEF 25-75 at 109%. Post-bronchodilator study was not done. Flow volume loops suggest a restrictive defect. IMPRESSION: 1. No significant obstructive disease. 2. 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
== END 2017-08-10 17:45 | DRG 234 ==
LOC: HCAT 06:39 → HDIC 06:39 → HCAT 14:24 → HCPC 14:24 → HCIS 08-05 08:45 → HCVI 08-05 12:26 → HCPC 08-06 16:10
PROVIDERS: ADMIT Thoracic Surgery (Cardiothoracic Vascular Surgery); ATTEND Thoracic Surgery (Cardiothoracic Vascular Surgery)
PROC: 4A023N7 Measurement of Cardiac Sampling and Pressure, Left Heart, Percutaneous Approach (ICD-10-PCS; 2017-08-03)
PROC: B2111ZZ Fluoroscopy of Multiple Coronary Arteries using Low Osmolar Contrast (ICD-10-PCS; 2017-08-03)
PROC: B2151ZZ Fluoroscopy of Left Heart using Low Osmolar Contrast (ICD-10-PCS; 2017-08-03)
PROC: 021209W Bypass Coronary Artery, Three Arteries from Aorta with Autologous Venous Tissue, Open Approach (ICD-10-PCS; 2017-08-05)
PROC: 06BQ4ZZ Excision of Left Saphenous Vein, Percutaneous Endoscopic Approach (ICD-10-PCS; 2017-08-05)
PROC: 5A1221Z Performance of Cardiac Output, Continuous (ICD-10-PCS; 2017-08-05)
PROC: 02100Z9 Bypass Coronary Artery, One Artery from Left Internal Mammary, Open Approach (ICD-10-PCS; principal; 2017-08-05 07:09)
DX: I25.119 Atherosclerotic heart disease of native coronary artery with unspecified angina pectoris (principal); I48.91 Unspecified atrial fibrillation; I10 Essential (primary) hypertension; N40.0 Benign prostatic hyperplasia without lower urinary tract symptoms; K21.9 Gastro-esophageal reflux disease without esophagitis; R91.1 Solitary pulmonary nodule; R19.7 Diarrhea, unspecified; R11.0 Nausea
CPT/HCPCS: 71045; 71046; 71250; 76937; 80048; 80053; 81001; 82948; 83036; 83735; 85025; 85027; 85610; 86850; 86900; 86901; 86920; 87641; 93005; 93458; 93880; 93970; 93998; 94002; 94010; 94150; 94640; 94664; 94667; 94668; 99152; 99153; C1769; C1893; J0131; J1644; J1815; J1817; J1940; J2150; J2250; J2405; J2440; J2930; J3010; J3370; J3480; J7030; J7040; J7050; P9047; Q9967